=== PATIENT | female | born 1965 | race Caucasian/White ===

== ENCOUNTER 2025-04-01 11:15 | Outpatient (CLI) | payer BC, SELFPAY | END 2025-04-01 23:59 | LOC: LAB.DROPOF 04-02 09:07 | PROVIDERS: PCP Emergency Medicine; Visit Provider Podiatrist | DX: S90.852A Superficial foreign body, left foot, initial encounter (principal) | CPT/HCPCS: 87070; 87205 ==

== ENCOUNTER 2025-04-07 22:33 | Outpatient (CLI) | payer BC, SELFPAY ==
--- OUTSIDE RECORDS SUMMARY | 2025-03-28 03:59 | XMS_ITS | Continuity of Care Document ---
Author Organization [facility] Phone Care Team Providers Care Tar And Ammonia Pump Operator Name Role Phone JAMA GODOY Primary Care JAMA GODOY O Unavailable KRYSTYNA GODOYATUNDE O Admitting JAMA GODOY Primary Attending [phone] ALLERGIES AND ADVERSE REACTIONS ALLERGIES AND ADVERSE REACTIONS Code System Allergy Substance Adverse Reaction Date Reaction (Severity) Comment Status Reported By Updated By [id number] RXNorm PENICILLIN Adverse reaction to substance yeast infections active [id number] on August 25, 2020 3:07:40 PM [facility] FAMILY HISTORY RELATION: Father Status: Cause of : Unknown Age at : Unknown SNOMED-CT Diagnosis Age At Onset [id number] Diabetes mellitus RELATION: Mother Status: LIVING SNOMED-CT Diagnosis Age At Onset Information not available RESULTS Patient: KARUNA REYEZ Date of : 1965 LABORATORY RESULTS Information is not available LABORATORY NARRATIVE RESULTS Information is not available RADIOLOGY RESULTS ORDER 100: FOOT LT 3V (LOINC : 32988-2) ORDER DATE: March 26, 2025 3:18:00 PM [facility] PERFORMING LAB: [address] [id number] Final Result Date: March 26, 2025 3:47:[address] [place] [address] Name: JOSEFINA BECKMAN Exam Date: 03/26/2025 : 1965 Age 59 years Gender: F Physician: JAMA GODOY Facility: [facility] Facility HSV: Outpatient Exam: FOOT LT 3V XR FOOT 3 OR MORE VIEWS LEFT Reason For Study: pain COMPARISON:None TECHNIQUE: 3 views of the left foot were obtained. FINDINGS There is small posterior enthesopathy spur and a moderate plantar calcaneal spur. Soft tissue calcic ages posterior to the talus likely from old trauma. There is evidence of PAD. A small radiopaque density near the MTP joints on the lateral view plantar surface measuring 2 mm which could represent fragment of glass. No acute fractures or dislocation. Ossicle versus old ununited fracture base of fifth metatarsal noted. IMPRESSION: 1. No acute fractures. 2. Small radiopaque density plantar surface near the MTP joints could represent fragment of glass. Electronically signed by: Nuzhat Maldonado MD 03/26/2025 01:54 PM [facility] Dictated By: NUZHAT MALDONADO Transcribed By: Transcribed On: 03/26/2025 10:47 AM Electronically signed by: NUZHAT MALDONADO 03/26/2025 Thank you for referring JOSEFINA BECKMAN to [facility]. Legally authenticated by ERICA NOLAND MD 2025-03-26 10:47:26 PATHOLOGY NARRATIVE RESULTS Information is not available MICROBIOLOGY RESULTS No Micro Labs/Results Exist for Patient BLOOD ADMIN RESULTS Information is not available MEDICATIONS HOME MEDICATIONS Status RXNORM NDC Medication Dose Route Frequency Dates Comments Reported By Updated By Drug Treatment Unknown DISCHARGE MEDICATIONS Status RXNORM NDC Medication Dose Route Frequency Dates Dis pense Data Comments Physician Updated By No Discharge Medication Info rmation Available INPATIENT MEDICATIONS Status RXNORM NDC Medication Dose Route Frequency Rat e Quantity Dates Indication Dispense Data Comments Physician Updated By No Inpatient Medication Info rmation Available SOCIAL HISTORY SOCIAL HISTORY - Smoking Status SNOMED-CT Social History Element Description Effective Dates Offered Cessation Comment Updated By [id number] Historical Tobacco smoking status Never Smoked Yes [id number] on August 21, 2020 3:14:11 PM [facility] SOCIAL HISTORY - Gender Sex: Female SOCIAL HISTORY - Status : status i nformation is not available Intention in Next Year: intention information is not available SOCIAL HISTORY - Assessments Code System Description Status Date Value of Assessment Updated By Comment Assessment Information is no t available SOCIAL HISTORY - Apache Affiliation Apache information is not av ailable SOCIAL HISTORY - Legal Sex Legal Sex information is not available SOCIAL HISTORY - Sexual Behavior Sexual Orientation Gender Identity SNOMED-CT Description SNO MED -CT Description Activity Level No of Partners Partner Type UpdatedBy Information is not available SOCIAL HISTORY - Occupation Occupation information is no t available HEALTH CONCERNS Problems Concern Status Health Concern problem infor mation not available. Smoking Status Status Years Used Consumed packs p er day Health Concern smoking histo ry information not available. Family History Concern Status Health Concern family histor y information not available. ENCOUNTERS ENCOUNTER INFORMATION Reason for Visit S90.859A Admission March 26, 2025 3:07:[address] [address] Discharge March 26, 2025 3:07:00 PM [facility] DISCHARGED TO HOME OR SELF CARE ENCOUNTER DIAGNOSES Notes information is not shreyas ilable. Code System Diagnosis Onset Date Diagnosis information is not available. ABSTRACT DIAGNOSES Code System Diagnosis Updated By Abatement Date S90.859A ICD10 SUPERFICIAL FORE IGN BODY, UNSPECIFIED FOOT, INITIAL ENCOUNTER [id number] on March 28, 2025 8:59:07 AM [facility] Z18.81 ICD10 RETAINED GLASS FRAGMENTS [id number] on March 28, 2025 8:59:07 AM [facility] Z88.8 ICD10 ALLERGY STATUS T O OTHER DRUGS, MEDICAMENTS AND BIOLOGICAL SUBSTANCES [id number] on March 28, 2025 8:59:07 AM [facility] S90.859A ICD10 SUPERFICIAL FORE IGN BODY, UNSPECIFIED FOOT, INITIAL ENCOUNTER [id number] on March 28, 2025 8:59:07 AM [facility] Z18.81 ICD10 RETAINED GLASS FRAGMENTS [id number] on March 28, 2025 8:59:07 AM [facility] Z88.8 ICD10 ALLERGY STATUS T O OTHER DRUGS, MEDICAMENTS AND BIOLOGICAL SUBSTANCES [id number] on March 28, 2025 8:59:07 AM [facility] CARE TEAM Care Tar And Ammonia Pump Operator Role JAMA GODOY Primary Care JAMA GODOY Referring JAMA GODOY Admitting JAMA GODOY Primary Attending CARE TEAM CARE bar catcher Role on Team Location Telecom Status Start Date End Richard e Updated By JAYNE Voss MD PHY PCP normal March 26, 2025 5:00:00 AM [facility] March 26, 2025 3:07:00 PM [facility] [id number] on March 26, 2025 3:08:29 PM [facility] JAYNE MALAVE Referring normal March 26, 2025 5:00:00 AM [place] March 26, 2025 3:07:00 PM [facility] [id number] on March 26, 2025 3:08:29 PM [facility] JAYNE MALAVE Attending normal March 26, 2025 5:00:00 AM [facility] March 26, 2025 3:07:00 PM [facility] [id number] on March 26, 2025 3:08:29 PM [facility] JAYNE MALAVE Admitting normal March 26, 2025 5:00:00 AM [facility] March 26, 2025 3:07:00 PM [facility] [id number] on March 26, 2025 3:08:29 PM [facility]
--- NOTE | 2025-04-07 22:36 | XR_ITS ---
PROCEDURE INFORMATION: Exam: XR Left Foot Complete; Alignment Exam date and time: 04/07/2025 10:44 PM Age: 59 years old Clinical indication: Pain; Foot; Left; Additional info: Left foot pain, foreign body TECHNIQUE: Imaging protocol: Radiologic exam of the left foot. Views: 3 or more views. COMPARISON: DX FOOT LT 3V 03/26/2025 10:28 AM FINDINGS: Bones/joints: Chronic flexion of the digits. Small calcaneal spur. No acute fracture. No dislocation. Soft tissues: No foreign body visualized. No significant edema. IMPRESSION: No acute findings.
--- OUTSIDE RECORDS SUMMARY | 2025-04-07 22:37 | XMS_ITS | Clinical Summary ---
Author Organization [facility] Address [address] [place] [address] Care Team Providers Care Vat Packer Name Role Phone Tonja Leo Primary Care Provider [phone] Allergies No known active allergies Medications XULTOPHY 100-3.6 UNIT-MG/ML solution pen-injector 50 UNITS DIRECTED SUBCUTANEOUS 30 DAYS 3 9 Active levocetirizine (XYZAL) 5 MG tablet Take 5 mg by mouth Daily. 3 8 Active losartan (COZAAR) 100 MG tablet Take 100 mg by mouth Daily. 1 8 Active metFORMIN ER (GLUCOPHAGE-XR) 500 MG 24 hr tablet TAKE 4 TABLETS BY MOUTH IN THE MORNING 0 8 Active JANUVIA 100 MG tablet Take 100 mg by mouth Daily. 0 8 Active escitalopram (LEXAPRO) 20 MG tablet Take 20 mg by mouth Daily. 0 8 Active fluconazole (DIFLUCAN) 150 MG tabletIndication s:Acute recurrent pansinusitis Take 1 tablet by mouth Daily. Take with first dose of antibiotic and last dose of antibiotic. 2 tablet 9 Active Active Problems No known active problems Immunizations Immunization Administration Dates Next Due flucelvax quad pfs =>4 YRS 02/23/2019 Social History Tobacco Use Types Packs/Day Years Used Date Smoking Tobacco: Never Abuse Screen Answer Date Recorded Unsafe at Home or Work/School Not on file Feels Threatened by Someone? Not on file 01/2023 Does Anyone Keep You from Co ntacting Others or Doint Things Outside the Home? Not on file 02/21/2023 Physical Sign of Abuse Present Not on file 1 Housing Stability Answer Date Recorded Current Living Arrangements Not on file 01/2023 Potentially Unsafe Housing Conditions Not on rhianna e 02/21/2023 Family and Community Support Answer Richard e Recorded Help with Day-to-Day Activities Not on file 02/21/2023 Lonely or Isolated Not on file 02/21/2023 Employment Answer Date Recorded Do you want help finding or keeping work or a kolby b? Not on file 02/21/2023 Disabilities Answer Date Recorded Concentrating, Remembering, or Making Decisions Difficulty Not on file 02/21/2023 Doing Errands Independently Difficulty Not on fi le 02/21/2023 Education Answer Date Recorded Help with school or training? Not on file Preferred Language Not on file 02/21/2023 Comments No Sex and Gender Information Value Date Recorded Sex Assigned at Not on file Legal Sex Female 10:54 AM EDT Gender Identity Not on file Sexual Orientation Not on file Last Filed Vital Signs Vital Sign Reading Time Taken Comments Blood Pressure 126/88 04/30/2019 11:45 AM EST Pulse 89 04/30/2019 11:45 AM EST Temperature 36.6 C (97.9 F) 04/30/2019 11:45 AM EST Respiratory Rate 18 04/30/2019 11:45 AM EST Oxygen Saturation 99% 04/30/2019 11:45 AM EST Inhaled Oxygen Concentration - - Weight 106 kg (234 lb) 04/30/2019 11:45 AM EST Height 170.2 cm (5' 7 ) 04/30/2019 11:45 AM EST Body Mass Index 36.65 04/30/2019 11:45 AM EST Plan of Treatment Health Maintenance Due Date Last Done Comments Annual Gynecologic Pelvic and Breast Exam 1965 TDAP/TD VACCINES (1 - Tdap) 10/12/1982 MAMMOGRAM 2003 COLOGUARD 10/12/2008 COLON CANCER SCREENING 5 YEAR SIGMOIDOSCOPY 10/12/2008 CT COLONOGRAPHY 10/12/2008 FECAL OCCULT BLOOD TEST 10/12/2008 FIT Testing (1 year) 10/12/2008 Pneumococcal Vaccine 50+ (1 of 1 - PCV) 10/12/2013 ZOSTER VACCINE (1 of 2) 10/12/2013 ANNUAL PHYSICAL 05/23/2017 HEPATITIS C SCREENING 05/23/2017 INFLUENZA VACCINE 12/14/2024 02/23/2019 COLONOSCOPY 09/10/2034 09/10/2024 COLORECTAL CANCER SCREENING 09/10/2034 Insurance [id number] [place] [id number] [employer] Member Subscriber Plan / Payer (Ef fective 2021-Present) Name:Iraj Lockwood Relation to Subscriber:Self Name:MandieEben hernándezin Payer ID:[id number] (NAIC) Type:Not on file Address: [facility] [id number] [place] [id number] Care Teams Vat Packer Relationship Specialty Start Date End Date Tonja Leo PA [address] [address] PCP - General Family Medicine 07/03/16
--- OUTSIDE RECORDS SUMMARY | 2025-04-07 22:37 | XMS_ITS | Data Portability ---
Author Organization [facility] JODIE ZapataS [facility]IP[facility] CLOSED Address [address] [facility] [address] [place] [address] Care Team Providers Care Thread Clipper Name Role Phone HAILEY ROJO Practicing Md Anesthesiologist DIONICIO AVALOS Primary Care Provider Assessment No assessment recorded. Plan of Treatment Reminders Order Date Submit Date Provider Last Modified By Organization Details Last Modified Time Details Appointments FOLLOW UP [facility] 2024 10:30A M HAILEY ROJO PA-C Not available Not available Not available Lab None recorde d. Referral None recorde d. Procedures None recorde d. Surgeries None recorde d. Imaging None recorde d. Medication Orders None recorde d. Patient TargetsNo targets recorded. Patient InstructionsNo instructions recorded. Reason for Referral None Reported. Procedures Surgical History Date Name Laterality Status Provider Name and Address Organization Details Recorded Time 04/17/20 24 DAK - Cryo AK completed Sky Wayne [facility] 04/17/2024 10:50:23 04/17/20 24 DAK - Destruction BN Lesions completed Sky Rosana [facility] 04/17/2024 10:50:31 04/11/20 23 DAK - Cryo AK completed María Brown [facility] 04/11/2023 09:25:27 04/11/20 23 DAK - Destruction BN Lesions completed María Brown [facility] 04/11/2023 09:25:21 04/11/20 23 DAK - Acne Surgery completed María Brown [facility] 04/11/2023 09:27:25 Imaging Results None recorded. Procedure Notes None recorded. Medical Equipment None Reported. Allergies No known drug allergies Medications Name Sig Start Date Stop Date Status Note LastModified by Organization Details LastModified Time meloxicam active Not Available Not Cheyenne ilable Not Available losartan active Not Available Not Avai lable Not Available Prilosec active Not Available Not Avai lable Not Available metformin active Not Available Not [place] ilable Not Available Lexapro active Not Available Not Avail able Not Available fenofibrate active Not Available Not A vailable Not Available Januvia active Not Available Not Avail able Not Available Xyzal active Not Available Not Availa ble Not Available Ozempic active Not Available Not Avail able Not Available Vitals None Recorded Social History Question Answer Notes LastModified by Organizat ion Details LastModified Time Tobacco Smoking Status Never Smoker Supriya Gay [facility] 04/11/2023 08:56:36 Sunscreen Use? Yes Informatio n not available 04/11/2023 Tanning Bed Use No Informati on not available 04/11/2023 What Was The Date Of Your Most Recent Tobacco Screening? 04/17/2024 [email or web address] Information not available 04/17/2024 Sex: Unknown Functional Status Question Answer Note LastModified by Organizat ion Details LastModified Time What is your level of alcohol consumption? Occasional Information not available 04/11/2023 Mental Status None recorded. Family History Nothing Reported. Medical History No medical history recorded. Gynecological HistoryNo gynecological history recorded. Obstetrics History GPAL:G 0 P 0 0 0 0 Past Encounters Encounter ID Performer Location Encounter Start Date Encounter Closed Date Diagnosis/Indication Diagnosis SNOMED-CT Code Diagnosis ICD10 Code Diagnosis IMO Codes Diagnosis Note [id number] HAILEY ROJO PA-C [place] [address] [place] [address] 04/11/2023 08:42:48 04/11/2023 09:34:16 Multiple benign melanocytic nevi [id number] D22.5 - Benign moles seen on exam today - SPF 30 or higher broad-spec trum sunscreen recommende d with re-applica tion every 2 hours - Discussed sun protection measures, including wide-brimm ed hat, sun-protec tive clothing, and avoidance of sun during peak hours of 10am-4pm - Avoid tanning beds as these can increase the chances of all 3 types of skin cancer - Instructed to monitor for changes and to call us for appointmen t with any changing or worrisome lesions Seborrheic keratosis [id number] L82.1 - Benign overgrowth s of skin - Hereditary Senile angioma 6725007 I 78.1 - Benign blood vessel growths - Hereditary Solar lentigo 11857086 L 81.4 - Benign brown spots - Sun-induce d Whitney [id number] L72.0 R20.8 Benign reassuranc e. Clogged pore.No tx needed.Can remove with acne surgery if desired. She opted for removal. Inflamed s eborrheic keratosis [id number] L82.0 Benign reassuranc e. Thickening of the skin. Can sometimes become irritated or inflamed. Can continue to get more over time. Plan to treat with LN2. Will crust over and fall off in about a week. Monitor for changes.Di scussed risk of white discolorat ion at sites of LN2. Sebaceous hyperplasia 23 [id number] L21.8 Sebaceous hyperplasi a are enlarged, but otherwise normal sebaceous oil glands. These become visible as we age and our skin gets thinner and we lose elastic tissue. Aging, sun exposure, and rosacea tendency all promote sebaceous hyperplasi a. There is no ideal non scarring treatment to remove these lesions. If desired, can use electrodes iccation at low voltage to destroy lesions, but this is not covered by insurance. Multiple skin tags [id number] L91.8 L29.9 Skin tags tend to occur in areas subjected to friction. Although they can be troublesom e and unsightly, skin tags are entirely benign. Will remove with LN2. Actinic keratosis L57.0 Actinic keratoses are precancero us lesions that may progress to squamous cell carcinoma if untreated. UV light and genetics may increase risk. Treated lesions should blister, scab over, and heal within a few weeks. If treated lesion(s) does not resolve within 1-2 months, patient agrees to follow up for re-evaluat ion. [id number] HAILEY MUSTAPHA ROJO , PA-C [facility] [address] [address] 04/17/2024 10:09:03 04/17/2024 10:55:47 Multiple benign melanocytic nevi [id number] D22.5 I78.1 L82.1 L81.4 Benign appearing lesions noted on exam. Reassured. Monitor for changes and call us for appt if changing or worrisome. Recommende d daily SPF 30 (or higher) broad-spec trum sunscreen usage with re-applica tion every 2 hours, as well as sun protection measures, including wide-brimm ed hats, wearing of protective clothing, and avoidance of sun during peak hours of the day 10 am - 4 pm.Follow up in 1 year for a full skin exam. Inflamed s eborrheic keratosis [id number] L82.0 R20.8 Benign ISK. Lesion(s) are/is bothersome . Will LN2 today. Can leave a white discolorat ion in the areas where LN2 is performed. May not completely go away. May be more of a debulking. Seborrheic keratosis 394 767105 L82.1 Benign over growths of skin. Reassuranc e given. Asteatosis cutis [id number] 0 L85.3 The nature of the diagnosis was discussed. Recommend washing only armpits, groin area, feet in shower with Dove Body soap. Disc over-washi ng body can cause skin to dry.Recomm end moisturizi ng with OTC Cetaphil or CeraVe Cream daily and after showering to lock in moisture. Actinic keratosis 704106 [phone] L57.0 Actinic keratoses are precancero us lesions that may progress to squamous cell carcinoma if untreated. UV light and genetics may increase risk. Treated lesions should blister, scab over, and heal within a few weeks. If treated lesion(s) does not resolve within 1-2 months, patient agrees to follow up for re-evaluat ion. Health Concerns Section Related Observation LastModified by Organization Detai ls LastModified Time None Recorded Concern Status LastModified by Organization Details LastModified Time None Recorded Advance Directives Directive None Recorded Payers Insurance Date Sequence Insurance Name Policy Number Policy Betancourt Covered Member ID Betancourt Member ID Guarantor Name 04/17/2024 1 *SELF PAY* Taina Danielle 04/17/2024 1 [place] [id number] Iraj Lockwood [id number] Iraj Lockwood Notes Date Note Type Note Provider Name and Address Organization Details Recorded Time 04/11/2023 text/html Patient is here for a full body skin exam. - Last skin check: Re-establishing patient.- No history of skin cancer.- Areas of concern: R upper thigh, right breast, forehead, back. 2. I have some skin tags. - Location: Neck, Bilateral upper arms, chest, face.- Duration: A while.- Prior treatments: None.- REPORTS: Skin tags. 3. I have rough skin on my elbows - Location: Bilateral elbows.- Duration: A while.- Prior treatments: OTC moisturizer.- REPORTS: Rough skin on elbows. HAILEY ROJO PA-C [address] [place], [address], [facility] 04/11/2023 09:50:10 04/17/2024 text/html Here for a full body skin examination - last skin check: 04/07 - no history of skin cancer - spots of concern today: back HAILEY ROJO PA-C [address] [place], [address], [facility] 04/17/2024 14:18:58 OBGyn Episode No OBEpisode recorded.
--- OUTSIDE RECORDS SUMMARY | 2025-04-07 22:37 | XMS_ITS | Encounter Summary ---
Author Organization Healthcare Address [address] [place] [address] Care Team Providers Care Accounting Tutor Name Role Phone Tonja Leo Primary Care Provider [phone] Nell Velazquez APRN Primary Care Provider Reason for Visit * Reason Comments Med Refill Encounter Details Date Type Department Care Team (Late st Contact Info) Description 07/13/2021 Refill [facility] [address], [address] [place] [address] Omid Roy MD [address] [facility] [address] [place] [address] Social History Tobacco Use Types Packs/Day Years Used Date Smoking Tobacco: Never Smokeless Tobacco: Never Alcohol Use Standard Drinks/Week Comments Yes 0 (1 standard drink = 0.6 oz pure alcohol) Alcoholic Drinks/day: Occasional alcohol use Comments Unknown Sex and Gender Information Value Date Recorded Sex Assigned at Female 04/15/2021 6:17 PM EST Legal Sex Female 7:39 PM EDT Gender Identity Female 04/15/2021 6:17 PM EST Sexual Orientation Not on file documented as of this encounter Plan of Treatment Not on file documented as of this encounter Visit Diagnoses Not on filedocumented in this encounter Care Teams Accounting Tutor Relationship Specialty Start Date End Date Tonja Leo PA [address] [place] [address] PCP - General 09/26/20 09/01/21 Nell Velazquez APRN [address] [place] [address] PCP - General Family Medicine 09/02/21 documented as of this encounter
--- OUTSIDE RECORDS SUMMARY | 2025-04-07 22:37 | XMS_ITS | Data Portability ---
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 Patient will come back in a year unless there are new symptoms. [email or web address] Not available 07/26/2022 13:24:00 08/01/2023 08/01/2023 Annual gynecological exam performed. Patient will come back in a year unless there are new symptoms. [email or web address] Not available 08/01/2023 13:04:06 08/02/2024 08/02/2024 Annual gynecological exam performed. Patient will come back in a year unless there are new symptoms. [email or web address] Not available 08/02/2024 08:45:29 Plan of Treatment Reminders Order Date Submit Date Provider Last Modified By Organization Details Last Modified Time Details Appointments None record ed. Lab vagina l pathog ens panel, MALISSA+pr obe, vagina l fluid 2024 025 EB [facility] ([facility], [address] [place] [address], [place], [address], 21:06:41 unlist ed lab - suresw ab(R) advanc ed vagini tis, tma 2023 024 [facility], [address], [place], [address], 4 11:17:15 rapid SARS CoV 2 Ag, QL, IA, upper respir atory specim en [address], [address] [place] [address], [id number], 4 08:27:22 rapid strep group A, throat [address], [address] [place] [address], [place], [address], 4 08:27:23 rapid flu (A+B) [address], [address] [place] [address], [id number], 4 08:27:24 Referral None record ed. Procedures None record ed. Surgeries None record ed. Imaging MAMMO, screen ing, digita l, bilate ral - Additi onal views and ultras ounds per radiol ogy. 2023 024 [facility] (Central Scheduling), [address] [place] [address] [place], [address], 4 15:36:04 MAMMO, screen ing, digita l, bilate ral 2022 023 [facility] (Central Scheduling), [address] [place] [address] [place], [address], 3 17:07:35 Medication Orders estrad iol 0.01% (0.1 mg/gra m) vagina l cream 2024 025 mathieu [facility]/Pharmacy #[id number], [address] [place] [address], [address], 5 09:25:12 Difluc an 200 mg tablet 2024 025 [facility]/Pharmacy #3016, [address] [place], [address], 5 09:30:13 nystat in 100,00 0 unit/g jessi topica l powder 2024 025 [facility]/Pharmacy #3016, [address] [place], [address], 5 09:25:12 cefdin ir 300 mg capsul e 2023 024 [email or web address] [facility]/Pharmacy #3016, [address] [place], [address], 5 08:46:09 Difluc an 200 mg tablet 2023 024 EB [facility]/Pharmacy #3016, [address] [place], [address], 4 08:27:23 Patient TargetsNo targets recorded. Patient Instructions Encounter Date Encounter Id Patient Instructions Last Modified By Organization Details Last Modified Time 07/07/2023 [id number] learning about healthy weight [email or web address] Not available 07/07/2023 08:27:19 Take medication as prescribed. Increase fluids and rest. Take Tylenol/Motrin as needed for fever/pain. Gargle with salt water/use throat lozenges for sore throat relief. If symptoms persist or worsen call the clinic. Not available 07/07/2023 08:16:42 Plan of care discussed with patient/guardian who voiced understanding. [email or web address] Not available 07/07/2023 08:16:27 Reason for Referral None Reported. Results Created Date Observation Date Name Description Value Unit Range Abnormal Flag Note LastModifiedBy Organization Detail LastModifiedTime 07/07/1907/07/2023 rapid strep group A, throa t Strep positi ve Not Available [facility] on [address], [place], [address], 07/07/2023 08:04:32 07/07/19 24 07/07/2023 rapid SARS CoV 2 Ag, QL, IA, upper respi rator y speci men SARS CoV Ag negati ve Not Available [facility] on [address], [address], 07/07/2023 07:55:20 07/07/19 24 07/07/2023 rapid flu (A+B) Flu A negati ve Not Available [facility] on [address], [address], 07/07/2023 08:04:36 07/07/19 24 07/07/2023 rapid flu (A+B) Flu B negati ve Not Available [facility] on [address], [address], 07/07/2023 08:04:36 08/01/19 24 08/02/2023 SURES WAB(R ) ADVAN KYLE VAGIN ITIS, TMA sureswab(R) adv bacterial vaginosis (bv), tma NEGATI VE negati ve normal Not Available [facility] [address] [place], [address], 08/02/2023 11:17:15 08/01/19 24 08/02/2023 SURES WAB(R ) ADVAN KYLE VAGIN ITIS, TMA blake species DETECT ED not detect ed abnormal Not Available [facility] [address] [place], [address], 08/02/2023 11:17:15 08/01/19 24 08/02/2023 SURES WAB(R ) ADVAN KYLE VAGIN ITIS, TMA blake glabrata NOT DETECT ED not detect ed normal Josie da speci es C. albic ans, C. tropi calis , C. parap latoya is, and/o r C. dubli niens is can be detec mare, but not diffe renti ated, in the Josie da spp. resul t. Not Available [facility] [address] [facility], [place], [address], 08/02/2023 11:17:15 08/01/19 24 08/02/2023 SUREDionisio ACHARYA(R ) ADVAN KYLE VAGIN ITIS, TMA trichomonas vaginalis (TV), tma NOT DETECT ED not detect ed normal Not Available [facility] [address] [facility], [place], [address], 08/02/2023 11:17:15 08/03/19 25 08/04/2024 NUSWA B VAGIN ITIS PLUS (VG+) atopobium vaginae Low - 0 score Not Available [facility] ([facility]) [address] [place], [address], 08/04/2024 21:06:41 08/03/19 25 08/04/2024 NUA B VAGIN ITIS PLUS (VG+) bvab 2 Low - 0 score Not Available [facility] ([facility]) [address] [facility], [place], [address], 08/04/2024 21:06:41 08/03/19 25 08/04/2024 NUSWA B VAGIN ITIS PLUS (VG+) megasphaera 1 Low - 0 score Calcu late total score by alannah panchal the 3 indiv idual bacte rial vagin osis (BV) marke r score s toget her. Total score is inter prete d as follo ws: Total score 0-1: Indic ates the absen ce of BV. Total score 2: Indet ermin ate for BV. Addit ional clini pankaj data shoul d be evalu ated to estab carson a diagn osis. Total score 3-6: Indic ates the prese nce of BV. Not Available [facility] ([facility]) [address] [place], [address], 08/04/2024 21:06:41 08/03/19 25 08/04/2024 NUA B VAGIN ITIS PLUS (VG+) blake albicans, MALISSA Negati ve negati ve Not Available [facility] ([facility]) [address] [place], [address], 08/04/2024 21:06:41 08/03/19 25 08/04/2024 NUSWA B VAGIN ITIS PLUS (VG+) blake glabrata, MALISSA Positi ve negati ve abnormal Publi shed data demon strat e that up to 65% of Josie da glabr patt ident ified in cases of vagin al josie diasi s have decre ased susce ptibi lity to fluco nazol e. Not Available [facility] ([facility]) [address] [facility], [place], [address], 08/04/2024 21:06:41 08/03/19 25 08/04/2024 NUA B VAGIN ITIS PLUS (VG+) trich vag by MALISSA Negati ve negati ve Not Available [facility] ([facility]) [address] [facility], [place], [address], 08/04/2024 21:06:41 08/03/19 25 08/04/2024 NUA B VAGIN ITIS PLUS (VG+) chlamydia trachomatis, MALISSA Negati ve negati ve Not Available [facility] ([facility]) [address] [facility], [place], [address], 08/04/2024 21:06:41 08/03/19 25 08/04/2024 NUA B VAGIN ITIS PLUS (VG+) neisseria gonorrhoeae, MALISSA Negati ve negati ve Not Available [facility] ([facility]) [address] [place], [address], 08/04/2024 21:06:41 08/24/19 23 08/23/2022 MAMMO , scree harry, digit al, bilat eral No observ ation record ed. [facility] (Registration ) [address] [place], [address], 08/24/2022 09:21:23 09/01/19 24 08/25/2023 MAMMO , scree harry, digit al, bilat eral No observ ation record ed. [facility] ([facility] ) [address] [place], [address], 09/12/2023 10:55:19 08/28/19 25 08/27/2024 MAMMO , scree harry, digit al, bilat eral No observ ation record ed. [facility] (Registration ) [address] [place], [address], 08/28/2024 12:49:49 09/12/19 25 09/11/2024 US, breas t, unila teral , limit ed No observ ation record ed. [email or web address] [facility] Registration [address] [place], [address], 09/11/2024 13:41:58 09/12/19 25 09/11/2024 MAMMO , scree harry, digit al, bilat eral No observ ation record ed. [facility] Registration [address] [place], [address], 09/11/2024 09:29:10 Result Notes None recorded. Problems Name Problem SNOMED Code Status Onset Date Resolution Date Notes Provider Name and Address Organization Details Recorded Time Subacute and chronic vaginitis 550343333 Active 2020 Problem Code: N76.1; Problem Code Type: ICD-10; Not Available [facility] 2 21:13:24 Gynecologic examination Active 2020 Problem Code: Z01.411; Problem Code Type: ICD-10; Not Available [facility] 2 21:13:25 Screening mammography Active 2020 Problem Code: Z12.31; Problem Code Type: ICD-10; Not Available [facility] 2 21:13:25 Screening for osteoporosi s Active 2020 Problem Code: Z13.820; Problem Code Type: ICD-10; Not Available [facility] 2 21:13:25 Postmenopau buffy bleeding 75569000 Active 2020 Problem Code: N95.0; Problem Code Type: ICD-10; Not Available [facility] 2 21:13:25 Atrophic vaginitis 74148089 Active 2020 Problem Code: N95.2; Problem Code Type: ICD-10; Not Available [facility] 2 21:13:26 Screening for malignant neoplasm of colon Active 2020 Not Available [facility] 21:13:25 Disorder of respiratory system suspected 010347380 Active 2020 Not Available [facility] 21:13:25 Mixed hyperlipide lidia 990976911 Active 2020 Problem Code: E78.2; Problem Code Type: ICD-10; Not Available [facility] 2 21:13:24 Type 2 diabetes mellitus without complicatio n 777498817 Active 2020 Not Available [facility] 21:13:24 Hypertensiv e disorder 20553160 Active 2020 Problem Code: I10; Problem Code Type: ICD-10; Not Available [facility] 21:13:24 Malignant neoplasm of large intestine 668163588 Active 2021 Problem Code: C18.9; Problem Code Type: ICD-10; Not Available [facility] 2 21:13:24 Sampling of vagina for Papanicolao u smear Active 2021 Problem Code: Z01.419; Problem Code Type: ICD-10; Not Available [facility] 21:13:25 Hirsutism 087826030 Active 2021 Problem Code: L68.0; Problem Code Type: ICD-10; Not Available [facility] 21:13:25 Problem Notes None recorded. Procedures Surgical History Date Name Laterality Status Provider Name and Address Organization Details Recorded Time 08/25/19 24 Most Recent Mammogram completed [employer] 08/02/2024 08:46:47 08/15/19 21 hysterectomy completed [employer] 07/26/2022 13:38:07 07/08/19 21 Date of Last Pap Smear completed [employer] 07/26/2022 13:25:51 Hernia Repair completed [facility] [employer] 06/24/2022 11:26:43 excision of ganglion cyst completed [employer] 07/26/2022 13:37:47 procedure on gallbladder completed [employer] 07/26/2022 13:37:56 resection of rectum completed [employer] 07/26/2022 13:38:21 Colonoscopy completed [employer] 08/02/2024 09:01:37 Imaging Results None recorded. Procedure Notes None recorded. Medical Equipment None Reported. Allergies Allergen ID Allergen Name Allergen Category Reaction Reaction Severity Criticality Documentation Date Start Date Code Code System Note Provider Name and Address Organization Details Recorded Time 97463 Product containin g penicilli n (product) medicatio n Not available Not available Not available 01/19/2022 [id number] SNOMED Marina britt [employer] 15:31:57 Medications Name Sig Start Date Stop Date Status Note LastModified by Organization Details LastModified Time fluconazole 100 mg tablet 08/02 completed Not Available Not Available Not Available metformin 500 mg tablet 2 tablets po bid 06/24 completed Not Available Not Available Not Available pilocarpine 1 % eye drops ADMINISTE R 1 DROP INTO THE RIGHT EYE 1 TIME EACH DAY 06/24 completed Not Available Not Available Not Available trazodone 50 mg tablet TAKE 1-2 TABLETS BY MOUTH EVERY NIGHT AT BEDIME FOR SLEEP active Not Available Not Available No t Available azithromyci n 250 mg tablet TAKE 2 TABLETS BY MOUTH TODAY, THEN TAKE 1 TABLET DAILY FOR 4 DAYS 07/07 completed Not Available Not Available Not Available fluconazole 150 mg tablet TAKE 1 TABLET BY MOUTH EVERY 72 HOURS FOR 3 DAYS active Not Available Not Available No t Available benzonatate 200 mg capsule TAKE 1 CAPSULE BY MOUTH THREE TIMES A DAY FOR 7 DAYS 07/07 completed Not Available Not Available Not Available clarithromy jaqui 500 mg tablet TAKE 1 TABLET BY MOUTH EVERY 12 HOURS FOR 7 DAYS 07/07 completed Not Available Not Available Not Available hydrocodone 5 mg-acetamin ophen 325 mg tablet TAKE 1 TABLET BY MOUTH EVERY 6 HOURS NEEDED FOR PAIN 08/02 completed Not Available Not Available Not Available fluconazole 200 mg tablet TAKE 1 TABLET BY MOUTH NEEDED FOR 3 DAYS active Not Available Not Available No t Available meloxicam 15 mg tablet TAKE 1 TABLET BY MOUTH EVERY DAY active Not Available Not Available No t Available prednisone 20 mg tablet TAKE 1 TABLET BY MOUTH EVERY DAY FOR 3 DAYS 07/07 completed Not Available Not Available Not Available terconazole 0.8 % vaginal cream INSERT 1 APPLICATO RFUL VAGINALLY EVERY DAY FOR 7 DAYS active Not Available Not Available No t Available amoxicillin 500 mg tablet 08/02 completed Not Available Not Available Not Available meloxicam 7.5 mg tablet take 1 tablet (7.5 mg) by oral route once daily 06/24 completed Not Available Not Available Not Available methocarbam ol 750 mg tablet TAKE 1 TABLET BY MOUTH THREE TIMES A DAY FOR 30 DAYS active Not Available Not Available No t Available trazodone 100 mg tablet take 1 tablet (100 mg) by oral route once times per day 2020 active Not Available Not Available Not Avai lable hydrocodone 7.5 mg-acetamin ophen 325 mg tablet TAKE 1 TABLET BY MOUTH TWICE A DAY FOR 5 DAYS 08/02 completed Not Available Not Available Not Available erythromyci n 5 mg/gram (0.5 %) eye ointment APPLY 1 APPLICATI ON TO BOTH EYES EVERY 6 (SIX) HOURS. 06/24 completed Not Available Not Available Not Available prednisone 50 mg tablet TAKE 1 TABLET BY MOUTH EVERY DAY 08/02 completed Not Available Not Available Not Available gabapentin 100 mg capsule TAKE 1 CAPSULE BY MOUTH THREE TIMES A DAY FOR 30 DAYS active Not Available Not Available No t Available nystatin 100,000 unit/gram topical powder APPLY TO AFFECTED AREA TWICE A DAY active Not Available Not Available No t Available estradiol 0.01% (0.1 mg/gram) vaginal cream INSERT 1 GM VAGINALLY THREE TIMES A WEEK 2024 active Not Available Not Available Not Avai lable scopolamine 1 mg over 3 days transdermal patch APPLY 1 PATCH ON SKIN EVERY 72 HOURS FOR 21 DAYS. active Not Available Not Available No t Available methylpredn isolone 4 mg tablets in a dose pack TAKE 6 TABLETS ON DAY 1 DIRECTED ON PACKAGE AND DECREASE BY 1 TAB EACH DAY FOR A TOTAL OF 6 DAYS 06/24 completed Not Available Not Available Not Available albuterol sulfate HFA 90 mcg/actuati on aerosol inhaler INHALE 2 PUFFS INTO THE LUNGS EVERY 4 HOURS FOR 7 DAYS active Not Available Not Available No t Available cefdinir 300 mg capsule TAKE 1 CAPSULE BY MOUTH EVERY 12 HOURS FOR 10 DAYS DIRECTED FOR STREP 08/02 completed Not Available Not Available Not Available losartan 100 mg tablet TAKE 1 TABLET BY MOUTH EVERY DAY active Not Available Not Available No t Available metformin ER 500 mg tablet,exte nded release 24 hr TAKE 4 TABLETS BY MOUTH ONCE DAILY IN THE MORNING active Not Available Not Available No t Available doxycycline hyclate 100 mg tablet TAKE 1 TABLET BY MOUTH TWICE A DAY FOR 10 DAYS 07/07 completed Not Available Not Available Not Available Laxative (bisacodyl) 5 mg tablet,barbara yed release DAY BEFORE PROCEDURE AT 4PM TAKE 4 TABLETS WITH 8 OZ OF CLEAR LIQUID active Not Available Not Available No t Available escitalopra m 20 mg tablet TAKE 1 TABLET BY MOUTH EVERY DAY active Not Available Not Available No t Available fenofibrate 160 mg tablet TAKE 1 TABLET BY MOUTH EVERY DAY active Not Available Not Available No t Available chlorhexidi ne gluconate 0.12 % mouthwash RINSE WITH 15ML FOR 30 SECONDS AND SPIT, USE TWICE DAILY AFTER BRUSHING AND FLOSSING . active Not Available Not Available No t Available losartan 06/24 completed Not Available Not Available Not Available metformin 04/30 completed Not Available Not Available Not Available Lexapro 04/30 completed Not Available Not Available Not Available Januvia 100 mg tablet TAKE 1 TABLET BY MOUTH EVERY DAY active Not Available Not Available No t Available Januvia 04/30 completed Not Available Not Available Not Available levocetiriz ine 5 mg tablet TAKE 1 TABLET BY MOUTH EVERY DAY IN THE EVENING FOR 30 DAYS active Not Available Not Available No t Available Gavilax 17 gram/dose oral powder PLEASE SEE ATTACHED FOR DETAILED DIRECTION S active Not Available Not Available No t Available Tradjenta 5 mg tablet TAKE 1 TABLET BY MOUTH EVERY DAY 08/02 completed Not Available Not Available Not Available Victoza 3-Rick 0.6 mg/0.1 mL (18 mg/3 mL) subcutaneou s pen injector INJECT 0.6MG DAILY X 2 WEEKS,THE N 1.2MG DAILY X 2 WEEKS,THE N 1.8MG DAILY 06/24 completed Not Available Not Available Not Available Jardiance 25 mg tablet TAKE 1 TABLET BY MOUTH EVERY DAY active Not Available Not Available No t Available Jardiance 04/30 completed Not Available Not Available Not Available Xultophy 100/3.6 04/30 completed Not Available Not Available Not Available Ozempic 0.25 mg or 0.5 mg (2 mg/1.5 mL) subcutaneou s pen injector INJECT 0.5 MG SUBCUTANE OUSLY WEEKLY 06/24 completed Not Available Not Available Not Available Ozempic 1 mg/dose (4 mg/3 mL) subcutaneou s pen injector INJECT 1 MG UNDER THE SKIN ONCE A WEEK 08/02 completed Not Available Not Available Not Available Ozempic 2 mg/dose (8 mg/3 mL) subcutaneou s pen injector INJECT 2 MG EVERY WEEK BY SUBCUTANE OUS ROUTE FOR 84 DAYS. active Not Available Not Available No t Available Vitals Date Recorded Body height Body mass index (BMI) Body weight Body temperature Heart rate Oxygen saturation Systolic And Diastolic Provider Name and Address Organization Details Last Updated DateTime 4 170.18 cm 32.4 kg/m2 76585.6 2 g 97.8 [degF] 70 /min 97 % 110/70 mm[Hg] Jennifer Oliver [facility] [employer] 4 08:04:29 Date Recorded Body height Body mass index (BMI) Body weight Systolic And Diastolic Provider Name and Address Organization Details Last Updated DateTime 07/26/2022 170.18 cm 34.1 kg/m2 67695.14 g 122/80 mm[Hg] DEYVI NOVAK [facility] 07/26/2022 13:48:58 Date Recorded Body height Body mass index (BMI) Body weight Systolic And Diastolic Provider Name and Address Organization Details Last Updated DateTime 08/01/2023 170.18 cm 33.1 kg/m2 34753.15 g 118/76 mm[Hg] GREGORIA ASHLEY [facility] 08/01/2023 13:01:08 Social History Question Answer Notes LastModified by Organizat ion Details LastModified Time Tobacco Smoking Status Never Smoker Marina britt [facility] 07/28/2022 15:32:40 Do You Wear A Helmet When Biking? No Information not available 07/07/2023 Are You Blind Or Do You Have Difficulty Seeing? Yes Wear Glasses Information not available 06/24/2022 What Is Your Level Of Caffeine Consumption? Moderate Information not available 06/24/2022 In The 14 Days Before Symptom Onset, Have You Had Close Contact With A Laboratory-confi rmed COVID-19 While That Case Was Ill? No [email or web address] Information not available 07/07/2023 In The 14 Days Before Symptom Onset, Have You Had Close Contact With A Person Who Is Under Investigation For COVID-19 While That Person Was Ill? No Information not available 07/07/2023 Have You Been To An Area Known To Be High Risk For COVID-19? No [email or web address] Information not available 07/07/2023 Are You Deaf Or Do You Have Serious Difficulty Hearing? No Information not available 06/24/2022 What Type Of Diet Are You Following? REGULAR Information not available 06/24/2022 Who Is Your Employer? [employer] Information not available 07/26/2022 Which Of Your Hands Is Dominant? Left Information not available 06/24/2022 What Was The Date Of Your Most Recent Tobacco Screening? 08/01/2023 [email or web address] Information not available 08/01/2023 What Is Your Relationship Status? Information not available 06/24/2022 Do You Use Your Seat Belt Or Car Seat Routinely? Yes Information not available 06/24/2022 Are You Passively Exposed To Smoke? No Information not available 06/24/2022 Are There Any Smokers In Your House? No Information not available 06/24/2022 Do You Participate In Social Media? Yes [email or web address] Information not available 07/07/2023 Has Tobacco Cessation Counseling Been Provided? No Information not available 07/07/2023 Have You Recently Traveled Abroad? No [email or web address] Information not available 07/07/2023 Do You Have Difficulty Walking Or Climbing Stairs? No Information not available 06/24/2022 Are You Currently In School? No Information not available 06/24/2022 Do You Have Any Dietary Restrictions? No Information not available 06/24/2022 Sex: Female Functional Status Question Answer Note LastModified by markedup ion Details LastModified Time How many times per week do you consume alcohol? Less than 1 time per week Information not available 06/24/2022 Do you use any illicit or recreational drugs? No Information not available 07/26/2022 Do you or have you ever used any other forms of tobacco or nicotine? No [email or web address] Information not available 07/07/2023 What is your level of alcohol consumption? Occasional Information not available 06/24/2022 Are you currently employed? Yes Information not available 06/24/2022 Do you have transportation difficulties? No Information not available 06/24/2022 Are you able to walk independently without assistance or assistive devices? [email or web address] Information not available 06/24/2022 Do you have difficulty doing errands alone? No Information not available 06/24/2022 Are you able to care for yourself independently? Yes Information not available 06/24/2022 What is your occupation? [employer] Information not available 06/24/2022 Do you have difficulty dressing, bathing, grooming, or toileting? No [employer] Information not available 06/24/2022 Mental Status Question Answer Note LastModified by Organizat ion Details LastModified Time Do you feel stressed (tense, restless, nervous, or anxious, or unable to sleep at night)? [id number] [employer] Information not available 06/24/2022 Do you have difficulty concentrating, remembering or making decisions? No [employer] Information n ot available 06/24/2022 Family History Relationship Description Onset Age of this Age Resolved Age Notes LastModified by Organization Details LastModified Time Unspecified Relation Family history of ischemic heart disease [email or web address] Not available 2022 15:32:27 Unspecified Relation Family history of hyperlipidem ia [email or web address] Not available 2022 15:32:29 Unspecified Relation Family history of diabetes mellitus type 2 [email or web address] Not available 2022 15:32:33 Medical History Condition Response Allergies/Hayfever Y Anxiety Disorder Y Diabetes Y Hospitalizations N Emergency room visit since last appointm ent. N Thyroid Problems N Hypertension Y Gynecological History Statement/Question Response Abnormal Pap N HPV Vaccine N Current Control Method Hysterectom y Most Recent Mammogram 08/25/2023 If Post Menopausal, Age at Menopause 48 Sexually Active? Y Menses Monthly N Date of Last Pap Smear 07/08/2020 Sexual Problems? N LMP Unknown Desired Control Method Hysterectom y Obstetrics History GPAL:G 0 P 0 0 0 0 Immunizations Vaccine Type Date Status Note Provider Nam e and Address Organization Details Recorded Time Influenza, split virus, quadrivalent, PF 3 completed Jennifer britt, [employer] 03/03/2023 14:25:53 Influenza, MDCK, quadrivalent, PF 1 completed DEYVI britt, [employer] 07/26/2022 13:24:05 Influenza, MDCK, quadrivalent, PF 9 completed DEYVI britt, [employer] 07/26/2022 13:24:05 Influenza, MDCK, quadrivalent, PF 2 completed DEYVI JAYLAN NOVAK null, [employer] 07/26/2022 13:24:05 zoster recombinant 0 completed DEYVI JAYLAN NOVAK null, [employer] 07/26/2022 13:24:05 zoster recombinant 0 completed DEYVI JAYLAN NOVAK null, [employer] 07/26/2022 13:24:05 COVID-19, mRNA, LNP-S, PF, 100 mcg/0.5mL dose or 50 mcg/0.25mL dose 1 completed DEYVI JAYLAN NOVAK null, [employer] 07/26/2022 13:24:05 COVID-19, mRNA, LNP-S, PF, 100 mcg/0.5mL dose or 50 mcg/0.25mL dose 1 completed DEYVI JAYLAN NOVAK null, [employer] 07/26/2022 13:24:05 COVID-19, mRNA, LNP-S, PF, 100 mcg/0.5mL dose or 50 mcg/0.25mL dose 2 completed DEYVI JAYLAN NOVAK null, [employer] 07/26/2022 13:24:05 COVID-19, mRNA, LNP-S, PF, 100 mcg/0.5mL dose or 50 mcg/0.25mL dose 1 completed DEYVI JAYLAN NOVAK null, [employer] 07/26/2022 13:24:05 pneumococcal polysaccharide PPV23 0 completed DEYVI JAYLAN NOVAK null, [employer] 07/26/2022 13:24:05 Hep B, adult 3 completed DEYVI JAYLAN NOVAK null, [employer] 07/26/2022 13:24:05 Hep B, adult 2 completed DEYVI JAYLAN NOVAK null, [employer] 07/26/2022 13:24:05 Hep B, adult 2 completed DEYVI MATHEWCO null, [employer] 07/26/2022 13:24:05 Influenza, split virus, quadrivalent, PF 8 completed DEYVI TIAN NOVAK null, [employer] 07/26/2022 13:24:05 Influenza, split virus, quadrivalent, PF 0 completed DEYVI JAYLAN NOVAK null, [employer] 07/26/2022 13:24:05 Past Encounters Encounter ID Performer Location Encounter Start Date Encounter Closed Date Diagnosis/Indication Diagnosis SNOMED-CT Code Diagnosis ICD10 Code Diagnosis IMO Codes Diagnosis Note [id number] Tonja Leo PA-C [facility] y [address] [place], [place] [address] 06/24/2022 11:09:09 06/24/2022 13:01:47 Acute sinusitis 01875816 J01.90 rest, increase fluids, Tylenol for fever or headache, humidifier . Continue Flonase and start antibiotic . Monitor blood glucose for elevations over 200 with adjustment in diet and contact PCP if persists with elevations . f/u in 5-7 days if not improved. Body mass index 30+ - obesity 151192130 Z68.34 healthy low carbohydra te low fat diet and regular aerobic exercise. Tobacco non-user [id number] 001 79656 Z13.89 [id number] Israel Gray MD [address] [address] 07/26/2022 13:10:26 07/26/2022 14:08:03 Gynecologic examination 78313230 Z01.411 No new gynecologi c issues. Normal exam today. Screening mammography 186915 Z12.31 Monthly self breast exam advised mammogram will be scheduled. . Screening for osteoporosis 177371709 Z13.820 Calcium 1200 mg p.o. daily with repeat DEXA in 1 to 2 years. [id number] Tonja Leo PA-C [facility] y [address] [place], [place] [address] 03/03/2023 12:27:00 03/03/2023 14:25:20 Administration of influenza vaccine 38753269 Z23 [id number] Tosha Combs APRN [facility] y [address] [place] [address] 07/07/2023 07:53:30 07/07/2023 10:31:02 Acute tonsillitis caused by Streptococcus 0766936169 4461278 J03.00 Acute uppe r respiratory infection 10303447 J06.9 Body mass index 30+ - obesity 865718263 Z68.32 [id number] Israel Gray MD [address] [address] 08/01/2023 12:55:17 08/01/2023 13:47:05 Gynecologic examination 33298107 Z01.411 No new gynecologi c issues. Normal exam today. . Mammograms will be scheduled. Plan on bone density study next year. Calcium 1200 mg p.o. daily advised. Screening mammography 24 751217 Z12.31 Monthly self breast exam advised mammogram will be scheduled. . Malignant neoplasm of large intestine 674522538 C18.9 Patient continues to follow-up with [facility] colorectal surgery department . He Chronic vulvitis 6547294 N76.3 Patient has poorly controlled diabetes with recurrent vulvar yeast infections . She has a standing order for Diflucan from her primary care provider. However I want to make sure she was not missing a resistant yeast or bacterial vaginosis. Sure swab was repeated. [id number] Israel Gray MD [address] [address] 08/02/2024 08:44:46 08/02/2024 09:25:39 Body mass index 30+ - obesity 357571210 Z68.33 Gynecologi c examination 54096618 Z01.411 . Normal exam today. . Mammograms will be scheduled. Plan on bone density study next year. Calcium 1200 mg p.o. daily advised. Atrophic vaginitis 52368 000 N95.2 Patient notes some dyspareuni a over the past year associated with vaginal dryness. Plan is to supplement with estrogen cream. Should this not provide relief I would switch her to O[place]hen[place] Malignant neoplasm of large intestine 293450180 C18.9 Patient continues to follow-up with [facility] colorectal surgery department . He Screening mammography 24 405786 Z12.31 Monthly self breast exam advised mammogram will be scheduled. . Mammogram is scheduled for August 27. Screening for osteoporosis 815126850 Z13.820 Calcium 1200 mg p.o. daily with repeat DEXA in 1 year. Chronic vulvitis 9684866 N76.3 Patient has poorly controlled diabetes with recurrent vulvar yeast infections . She has a standing order for Diflucan from her primary care provider. However I want to make sure she was not missing a resistant yeast or bacterial vaginosis. Sure swab was repeated. Health Concerns Section Related Observation LastModified by Organization Detai ls LastModified Time None Recorded Concern Status LastModified by Organization Details LastModified Time None Recorded Advance Directives Directive None Recorded Payers Insurance Date Sequence Insurance Name Policy Number Policy Betancourt Covered Member ID Betancourt Member ID Guarantor Name 08/06/2024 1 BCBS-[place]: [place] [id number] Iraj Toribiogh [id number] Iraj Lockwood Notes Date Note Type Note Provider Name and Address Organization Details Recorded Time 07/26/2022 text/html Annual GYNReport ed by PatientHistoryFor history, patient reportsno gynecologic complaints.Genitourina ry symptomsFor menstrual cycle, patient reportsnormal menses. For urinary symptoms, patient reportsno hematuriaandno incontinence. For vulva, patient reportsno genital lesion. For vagina, patient reportsnormal vaginal discharge.Breast symptomsFor breast, patient reportsno breast pain,no breast lump, andno nipple discharge.Endocrine symptomsFor sexual complaints, patient reportsno sexual complaints,no pain during intercourse, andnormal libido. For menopausal symptoms, patient reportsno menopausal symptomsandnormal vaginal lubrication.Psychologi pankaj symptomsFor psychological symptoms, patient reportsno depression,no anxiety, andno pmdd. Israel Gray MD [address] [place] [address], [phone], [facility] [employer] 07/26/2022 14:05:26 07/07/2023 text/html Upper Respirator y SymptomsReported by PatientUpper Respiratory SymptomsFor quality, patient reportsdry cough. For context, patient reportssick contactandallergies. For associated symptoms, patient reportssore throatandheadache. For location, patient reportshead,chest,thro at,nasal, andears. For severity, patient reportsmoderate. For duration, patient reportssymptoms lasting less than 2 weeks. For onset/timing, patient reportssudden.Pt reports that daughter had covid over the weekend and now she has symptoms. She reports a dry cough, runny nose with a lot of sneezing, headache. She reports taking Xyzal.ROS as noted in the HPI Consent for treatment obtained. Telehealth visit Tosha Combs APRN [address] [place], [address], [employer] 07/07/2023 08:28:01 08/01/2023 text/html Annual GYNReport ed by PatientHistoryFor history, patient reportsno gynecologic complaints.Genitourina ry symptomsFor menstrual cycle, patient reportsnormal menses. For urinary symptoms, patient reportsno hematuriaandno incontinence. For vulva, patient reportsno genital lesion. For vagina, patient reportsnormal vaginal discharge.Breast symptomsFor breast, patient reportsno breast pain,no breast lump, andno nipple discharge.Endocrine symptomsFor sexual complaints, patient reportsno sexual complaints,no pain during intercourse, andnormal libido. For menopausal symptoms, patient reportsno menopausal symptomsandnormal vaginal lubrication.Psychologi pankaj symptomsFor psychological symptoms, patient reportsno depression,no anxiety, andno pmdd. Israel Gray MD [address] [place], [address], [employer] 08/01/2023 13:25:10 08/02/2024 text/html Annual GYNReport ed by PatientHistoryFor history, patient reportsno gynecologic complaints.Genitourina ry symptomsFor menstrual cycle, patient reportsnormal menses. For urinary symptoms, patient reportsno hematuriaandno incontinence. For vulva, patient reportsno genital lesion. For vagina, patient reportsnormal vaginal discharge.Breast symptomsFor breast, patient reportsno breast pain,no breast lump, andno nipple discharge.Endocrine symptomsFor sexual complaints, patient reportsno sexual complaints,no pain during intercourse, andnormal libido. For menopausal symptoms, patient reportsno menopausal symptomsandnormal vaginal lubrication.Psychologi pankaj symptomsFor psychological symptoms, patient reportsno depression,no anxiety, andno pmdd. 58-year-old white female G0 status post hysterectomy years ago who presents today for annual well woman exam. She is followed by the [facility] colorectal service for previous history of colon cancer and has a colonoscopy scheduled for September 10. She also has a mammogram scheduled for August 27. Chief complaint today is some vaginal atrophy with resultant dyspareunia. Israel Gray MD [address] [place] [address], [phone], [facility] [employer] 08/02/2024 09:26:13 OBGyn Episode No OBEpisode recorded.
--- OUTSIDE RECORDS SUMMARY | 2025-04-07 22:37 | XMS_ITS | Clinical Summary ---
Author Organization Healthcare Address [address] [place] [address] Care Team Providers Care Roller Stitcher Name Role Phone Nell Velazquez Duane KNOX Primary Care Provider Allergies Active Allergy Reactions Criticality Noted Date Comments Penicillin G Other - please docum ent in the comment field,Unknown - Patient states they do not know rxn details Low 08/29/2020 yeast infection Medications losartan (Cozaar) 100 MG tablet 8 Active escitalopram (Lexapro) 20 MG tablet 8 Active fluticasone (Flonase) 50 MCG/ACT nasal spray 7 Active SITagliptin (Januvia) 100 MG tablet 7 Active metFORMIN XR (Glucophage-XR) 500 MG 24 hr tablet 6 Active Glucose Blood (ONETOUCH ULTRA BLUE ) 6 Active Jardiance 25 MG 1 Active traZODone (Desyrel) 50 MG tablet 1 Active OneTouch Ultra test strip 1 Active Victoza 18 MG/3ML inj. pen 1 Active B-D UF III MINI PEN NEEDLES 31G X 5 MM misc 1 Active fluconazole (Diflucan) 200 MG tablet 1 Active erythromycin (Romycin) 5 MG/GM ophthalmic ointment Apply 1 application to both eyes every 6 (six) hours. 3.5 g 2 Active pilocarpine (Pilocar) 1 % ophthalmic solution ADMINISTER 1 DROP INTO THE RIGHT EYE 1 TIME EACH DAY 45 mL 1 2 Active polyethylene glycol (MiraLax) 17 GM/SCOOP powder Take at 6pm - day before procedure. Mix Miralax 238 gram bottle with 64 ounces of Gatorade and refrigerate. Drink 8 ounces every 15 minutes starting at 6pm until completete. 238 g 5 Active bisacodyl (Dulcolax) 5 MG EC tablet Day before procedure at 4pm take 4 tablets with 8 oz of clear liquid. 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 Bilateral dry eyes 09/18/2020 PCO (posterior capsular opacification), right Diabetes mellitus type 2 without retinopathy History of YAG laser capsulotomy of lens of righ t eye 04/29/2017 Traumatic mydriasis 10/20/2016 Superficial laceration of right cornea 7 Hyphema of right eye 09/28/2016 Family History Medical History Relation Name Comments Cardiac disorder Mother Cataracts Mother Diabetes Mother Other cancer Mother Glaucoma Other Relation Name Status Comments Mother Other Social History Tobacco Use Types Packs/Day Years Used Date Smoking Tobacco: Never Smokeless Tobacco: Never Alcohol Use Standard Drinks/Week Comments Yes 0 (1 standard drink = 0.6 oz pure alcohol) Alcoholic Drinks/day: Occasional alcohol use Comments No Sex and Gender Information Value Date Recorded Sex Assigned at Female 04/15/2021 6:17 PM EST Legal Sex Female 7:39 PM EDT Gender Identity Female 04/15/2021 6:17 PM EST Sexual Orientation Not on file Last Filed Vital Signs Vital Sign Reading Time Taken Comments Blood Pressure 115/82 09/10/2024 2:45 PM EDT Pulse 101 09/10/2024 2:45 PM EDT Temperature 36.2 C (97.1 F) 09/10/2024 2:30 PM EDT Respiratory Rate 15 09/10/2024 2:45 PM EDT Oxygen Saturation 95% 09/10/2024 2:45 PM EDT Inhaled Oxygen Concentration - - Weight 90.4 kg (199 lb 4.7 oz) 09/10/2024 12:40 PM EDT Height 170.2 cm (5' 7 ) 09/10/2024 12:40 PM EDT Body Mass Index 31.21 09/10/2024 12:40 PM EDT Plan of Treatment Health Maintenance Due Date Last Done Comments [facility]-Depression Screening 1963 [facility]-Diabetes: Hemoglobin A1C 1963 [facility]-HIV Screening 1963 [facility]-Hepatitis C Screening 1963 [facility]-Infant/Child/Adol SDOH Screenings 1965 [facility]-Obesity Intervention 10/12/1969 Diabetes: Dental Exam 10/12/1973 [facility]- SDOH Screenings 10/12/1981 [facility]-Adult SDOH Screenings 10/12/1981 CT Colonography 10/12/2008 FIT-DNA 10/12/2008 FIT 10/12/2008 FOBT 10/12/2008 Sigmoidoscopy 10/12/2008 [facility]-Breast Cancer Screening 10/12/2013 [facility]-Pneumococcal Vaccine: 50+ Years (2 of 2 - PCV) 01/14/2021 01/15/2020 [id number] Vaccine (2024- season) 2025 11/24/2021, 03/12/2021, 07/05/2020, Additional history exists [facility]-Influenza Vaccine (#1) 01/14/202503/01, 03/03/2023, 03/08/2022, Additional history exists Colonoscopy 09/09/2029 09/10/2024, 09/02/2021 [facility]-Colorectal Cancer Screening 09/09/2029 [facility]-DTaP,Tdap,and Td Vaccines (2 - Td or Tdap) 10/19/2033 10/20/2023 [facility]-RSV Vaccine: 60+ Years or (1 - 1-dose 75+ series) 10/12/2038 [facility]-Zoster Vaccines Completed 03/22/2020, 0 HPV Vaccines Aged Out No longer eligi ble based on patient's age to complete this topic [facility]-HIB Vaccines Aged Out No longer e ligible based on patient's age to complete this topic [facility]-Hepatitis A Vaccines Aged Out No longer eligible based on patient's age to complete this topic [facility]-IPV Vaccines Aged Out No longer e ligible based on patient's age to complete this topic [facility]-Rotavirus Vaccines Aged Out No lo nger eligible based on patient's age to complete this topic Procedures Procedure Name Priority Date/Time Associated Diagnosis Comments COLONOSCOPY Routine 09/10/2024 2:28 PM EDT Screening due from Last 3 Months or Most Recently Relevant to Health Maintenance Results * Colonoscopy (09/10/2024 2:28 PM EDT) Anatomical Region Laterality Modality Endoscopy Narrative 09/10/2024 2:29 PM EDT Table formatting from the original result was not included. Impression: Scattered diverticulosis of mild severity in the sigmoid colon Medium (grade 2) hemorrhoids Healthy dadb-my-knqa ileocolonic anastomosis in the terminal ileum Post Procedure Diagnosis None Recommendations Repeat colonoscopy in 5 years, due: 09/09/2029 Personal history of colon polyps Indication Order Indication: Screening due Medications midazolam (Versed) injection 5 mg fentaNYL (Sublimaze) injection 125 mcg (Totals for administrations occurring from 1339 to 1426 on 09/10/24) Staff Staff Role Jonathan Prater MD Proceduralist Yenni Hendrickson Endo Assembler [employer] Noa Hurd RN Endo Nurse Nacho Law MD Resident - Assisting Maribel Torres RN Endo Nurse Preprocedure A history and physical has been performed, and patient medication allergies have been reviewed. The patient's tolerance of previous anesthesia has been reviewed. The risks and benefits of the procedure and the sedation options and risks were discussed with the patient. All questions were answered and informed consent obtained. Details of the Procedure The patient underwent moderate sedation, which was administered by the endoscopist. The patient's blood pressure, heart rate, level of consciousness, oxygen, respirations and ETCO2 were monitored throughout the procedure. A digital rectal exam was performed. A perianal exam was performed. The scope was introduced through the anus and advanced to the site of the skmp-ll-ouqr ileocolonic anastomosis. Retroflexion was performed in the rectum. The quality of bowel preparation was evaluated using the [place] Bowel Preparation Scale with scores of: right colon = 2, transverse colon = 2, left colon = 2. The total BBPS score was 6. Bowel prep was adequate. The patient experienced no blood loss. The procedure was not difficult. The patient tolerated the procedure well. There were no apparent adverse events. Patient reassessed immediately prior to sedation and felt to be medically appropriate to proceed as planned. Moderate (conscious) sedation was personally administered by the endoscopist. The following parameters were monitored: oxygen saturation, heart rate, blood pressure, and response to care. Total physician intra-service time was indicated on the nursing documentation and was 50 minutes. An independent trained observer (Maribel Cantu RN) was present and continuously monitored the patient. Attestation I personally performed the entire procedure Events Procedure Events Event Event Time ENDO SCOPE IN TIME 09/10/2024 1:57 PM ENDO CECUM REACHED 09/10/2024 2:15 PM ENDO SCOPE OUT TIME 09/10/2024 2:26 PM Specimens No specimens were documented in this log. Findings Few small, scattered diverticula of mild severity with no inflammation containing no content in the sigmoid colon Internal medium (grade 2) hemorrhoids observed during retroflexion; no bleeding was observed Healthy ikme-sg-npul ileocolonic anastomosis in the terminal ileum; no bleeding was observed Jonathan Prater MD GI PROCEDURE ORDERABLES Ceci rice Result from Last 3 Months or Most Recently Relevant to Health Maintenance Insurance ANTHEM Care Teams Roller Stitcher Relationship Specialty Start Date End Date Nell Velazquez APRN [facility] [place] [address] PCP - General Family Medicine 09/02/21
--- OUTSIDE RECORDS SUMMARY | 2025-04-07 22:37 | XMS_ITS | Encounter Summary ---
Author Organization [facility] Address [address] [place] [address] Care Team Providers Care Meter Maker Name Role Phone Nell Velazquez APRN Primary Care Provider [phone] Reason for Visit * Reason Comments Med Change Request Encounter Details Date Type Department Care Team (Late st Contact Info) Description 12/27/2021 [facility] [place] [address] [place] [address], [address] [place] [address] Omid Roy MD [address] [address] Social History Tobacco Use Types Packs/Day [...] on filedocumented in this encounter Care Teams Meter Maker Relationship Specialty Start Date End Date Nell Velazquez APRN [address] [place] [address] PCP - General Family Medicine 09/02/21 documented as of this encounter
== END 2025-04-07 23:59 | disposition home or self-care (01) ==
LOC: RAD 22:36
PROVIDERS: PCP Emergency Medicine; Visit Provider Podiatrist
DX: S90.852A Superficial foreign body, left foot, initial encounter (principal); M79.672 Pain in left foot
CPT/HCPCS: 73630

== ENCOUNTER 2025-04-08 14:22 | Outpatient (CLI) | payer BC, SELFPAY ==
--- OUTSIDE RECORDS SUMMARY | 2025-04-08 14:32 | XMS_ITS | Clinical Summary ---
Author Organization [place] [facility] Address [address] [place] [address] Care Team Providers Care Help Desk Assistant Name Role Phone Tonja Leo Primary Care Provider [phone] Allergies No known active allergies Medications XULTOPHY [...] 09/10/2034 Insurance [address] [id number] [employer] Member Subscriber Plan / Payer (Ef fective 2021-Present) Name:Iraj Lockwood Relation to Subscriber:Self Name:MandieEben hernándezin Payer ID:[id number] (NAIC) Type:Not on file Address: [facility] [address] [place] [id number] Care Teams Help Desk Assistant Relationship Specialty Start Date End Date Tonja Leo PA [address] [address] PCP - General Family Medicine 07/03/16
--- OUTSIDE RECORDS SUMMARY | 2025-04-08 14:32 | XMS_ITS | Encounter Summary ---
Author Organization Healthcare Address [address] [place] [address] Care Team Providers Care Parish Nurse Name Role Phone Tonja Leo Primary Care Provider [phone] Nell Velazquez APRN Primary Care Provider Reason for Visit * Reason Comments Med Refill Encounter Details Date Type Department Care Team (Late st Contact Info) Description 07/13/2021 Refill [facility] [address], [address] [place] [address] Omid Roy MD 110 [facility] [address] [place] [address] Social History Tobacco Use Types [...] on filedocumented in this encounter Care Teams Parish Nurse Relationship Specialty Start Date End Date Tonja Leo PA [address] [place] [address] PCP - General 09/26/20 09/01/21 Nell Velazquez APRN [address] [place] [address] PCP - General Family Medicine 09/02/21 documented as of this encounter
--- OUTSIDE RECORDS SUMMARY | 2025-04-08 14:32 | XMS_ITS | Encounter Summary ---
Author Organization [facility] Address [address] [place] [address] Care Team Providers Care Double Needle Stitcher Name Role Phone Nell Velazquez APRN Primary Care Provider Reason for Visit * Reason Comments Med Change Request Encounter Details Date Type Department Care Team (Late st Contact Info) Description 12/27/2021 [facility] [place] [address] [place] [address], [address] [place] [address] Omid Roy MD [address] [address] Social History Tobacco Use Types [...] on filedocumented in this encounter Care Teams Double Needle Stitcher Relationship Specialty Start Date End Date Nell Velazquez APRN [address] [place] [address] PCP - General Family Medicine 09/02/21 documented as of this encounter
--- OUTSIDE RECORDS SUMMARY | 2025-04-08 14:32 | XMS_ITS | Clinical Summary ---
Author Organization Healthcare Address [address] [place] [address] Care Team Providers Care It Lead Name Role Phone Nell Velazquez Duane KNOX Primary Care Provider [phone] Allergies Active Allergy Reactions Criticality Noted Date [...] (2 of 2 - PCV) 01/14/2021 01/15/2020 [id number] Vaccine (2024- season) 2025 11/24/2021, 03/12/2021, 07/05/2020, [...] sigmoid colon Medium (grade 2) hemorrhoids Healthy ieye-dz-womk ileocolonic anastomosis in the terminal ileum Post Procedure Diagnosis None Recommendations Repeat colonoscopy in 5 years, due: 09/09/2029 Personal history of colon polyps Indication Order Indication: Screening due Medications midazolam (Versed) injection 5 mg fentaNYL (Sublimaze) injection 125 mcg (Totals for administrations occurring from 1339 to 1426 on 09/10/24) Staff Staff Role Jonathan Prater MD Proceduralist Yenni Hendrickson Endo Glass Mold Repairer Noa Hurd RN Endo Nurse Nacho Law [...] and advanced to the site of the cztk-ud-fibq ileocolonic anastomosis. Retroflexion was performed in the rectum. The quality of bowel preparation was evaluated using the [place] Bowel Preparation Scale with scores of: right [...] during retroflexion; no bleeding was observed Healthy hbgq-mn-hrof ileocolonic anastomosis in the terminal ileum; no bleeding was observed Jonathan Prater MD GI PROCEDURE ORDERABLES Ceci rice Result from Last 3 Months or Most Recently Relevant to Health Maintenance Insurance ANTHEM Care Teams It Lead Relationship Specialty Start Date End Date Nell Velazquez APRN [facility] [place] [address] PCP - General Family Medicine 09/02/21
[2025-04-08 14:54] LABS: Hematocrit 42.3 % (37.0-47.0); Hemoglobin 14.1 g/dL (12.2-16.2); Immature Granulocytes % 0.2 %; Mean Corpuscular HGB Conc 33.3 g/dL (31.8-35.4); Mean Corpuscular Hemoglobin 29.5 pg (27.0-31.2); Mean Corpuscular Volume 88.5 fl (81-99); Nucleated Red Blood Cells % 0 %; Platelet Count 136 K/mm3 (142-424); Red Blood Count 4.78 M/mm3 (4.20-5.40); Red Cell Distribution Width-SD 41.6 fL; White Blood Count 6.3 K/mm3 (4.8-10.8)
[2025-04-08 15:01] LABS: Hemoglobin A1C 9.1 % (4.0-6.0)
[2025-04-08 15:17] LABS: Alanine Aminotransferase 29 U/L (12-78); Albumin Level 4.6 g/dl (3.5-5.0); Albumin/Globulin Ratio 1.8 (1.1-1.8); Alkaline Phosphatase 65 U/L (38-126); Anion Gap 14.2 mEq/L (5-15); Aspartate Amino Transferase 32 U/L (14-36); Bilirubin,Total 0.5 mg/dl (0.2-1.3); Blood Urea Nitrogen 22 mg/dl (7-17); Calcium 10.1 mg/dl (8.4-10.2); Carbon Dioxide 22 mmol/L (22.0-30.0); Chloride 98 mmol/L (98-107); Creatinine,Serum 0.80 mg/dl (0.52-1.04); Estimated Glomerular Filt Rate 73 ml/min (>60); GFR (African American) 88 ML/MIN (>60); Globulin 2.5 g/dL (1.3-3.2); Glucose 291 mg/dl (74-100); Potassium 4.2 mmoL/L (3.5-5.1); Sodium 130 mmol/L (136-145); Total Protein,Serum 7.1 g/dl (6.3-8.2)
[2025-04-08 15:22] LABS: C-Reactive Protein 5.3 mg/L (0-4)
== END 2025-04-08 23:59 | disposition home or self-care (01) ==
PROVIDERS: PCP Emergency Medicine; Visit Provider Podiatrist
DX: E11.65 Type 2 diabetes mellitus with hyperglycemia (principal); S90.852S Superficial foreign body, left foot, sequela
CPT/HCPCS: 36415; 80053; 83036; 85025; 85651; 86140

== ENCOUNTER 2025-04-09 12:49 | Outpatient (CLI) | payer BC, SELFPAY ==
--- NOTE | 2025-04-09 13:00 | CT_ITS ---
FINAL REPORT CLINICAL HISTORY: evaluate foreign body and r/o abscess vs infection, plantar side of foot Authenticated and ERN
--- OUTSIDE RECORDS SUMMARY | 2025-04-09 13:01 | XMS_ITS | Encounter Summary ---
Author Organization Healthcare Address [address] [place] [address] Care Team Providers Care Gastroenterologist Name Role Phone Tonja Leo Primary Care Provider [phone] Nell Velazquez APRN Primary Care Provider Reason for Visit * Reason Comments Med Refill Encounter Details Date Type Department Care Team (Late st Contact Info) Description 07/13/2021 Refill [facility] [address], [address] [place] [id number] Omid Roy MD [address] [facility] [address] [place] [address] Social History Tobacco Use Types [...] on filedocumented in this encounter Care Teams Gastroenterologist Relationship Specialty Start Date End Date Tonja Leo PA [address] [place] [address] PCP - General 09/26/20 09/01/21 Nell Velazquez APRN [address] [place] [address] PCP - General Family Medicine 09/02/21 documented as of this encounter
--- OUTSIDE RECORDS SUMMARY | 2025-04-09 13:01 | XMS_ITS | Clinical Summary ---
Author Organization [facility] Address [address] [place] [address] Care Team Providers Care Financial Sales Assistant Name Role Phone Tonja Leo Primary Care Provider [phone] Allergies No known active allergies Medications XULTOPHY [...] 09/10/2034 Insurance [address] [id number] [employer] Member Subscriber Plan / Payer (Ef fective 2021-Present) Name:Iraj Lockwood Relation to Subscriber:Self Name:MandieEben hernándezin Payer ID:[id number] (NAIC) Type:Not on file Address: [facility] [id number] [place] [id number] Care Teams Financial Sales Assistant Relationship Specialty Start Date End Date Tonja Leo PA [address] [facility] [address] PCP - General Family Medicine 07/03/16
--- OUTSIDE RECORDS SUMMARY | 2025-04-09 13:01 | XMS_ITS | Clinical Summary ---
Author Organization Healthcare Address [address] [place] [address] Care Team Providers Care Patient Care Specialist Name Role Phone Nell Velazquez Duane KNOX Primary Care Provider [phone] Allergies Active Allergy Reactions Criticality Noted Date [...] (2 of 2 - PCV) 01/14/2021 01/15/2020 [id number] Vaccine (2024- season) 2025 11/24/2021, 03/12/2021, 07/05/2020, [...] sigmoid colon Medium (grade 2) hemorrhoids Healthy skud-hl-tont ileocolonic anastomosis in the terminal ileum Post Procedure Diagnosis None Recommendations Repeat colonoscopy in 5 years, due: 09/09/2029 Personal history of colon polyps Indication Order Indication: Screening due Medications midazolam (Versed) injection 5 mg fentaNYL (Sublimaze) injection 125 mcg (Totals for administrations occurring from 1339 to 1426 on 09/10/24) Staff Staff Role Jonathan Prater MD Proceduralist Yenni Hendrickson Endo Warp Yarn Sorter Noa Hurd RN Endo Nurse Nacho Law [...] and advanced to the site of the hesx-qw-oted ileocolonic anastomosis. Retroflexion was performed in the rectum. The quality of bowel preparation was evaluated using the [place] Bowel Preparation Scale with scores of: right [...] during retroflexion; no bleeding was observed Healthy ewjm-jw-suww ileocolonic anastomosis in the terminal ileum; no bleeding was observed Jonathan Prater MD GI PROCEDURE ORDERABLES Ceci rice Result from Last 3 Months or Most Recently Relevant to Health Maintenance Insurance ANTHEM Care Teams Patient Care Specialist Relationship Specialty Start Date End Date Nell Velazquez APRN [facility] [place] [address] PCP - General Family Medicine 09/02/21
--- OUTSIDE RECORDS SUMMARY | 2025-04-09 13:01 | XMS_ITS | Data Portability ---
Author Organization [employer] [facility] Address [address] [place] [address] Care Team Providers Care Traffic Technician Name Role Phone DIONICIO AVALOS Primary Care Provider Assessment Encounter Date Assessment Date Assessment LastModified by Organization Details LastModified Time 07/26/2022 07/26/2022 Annual gynecological exam performed. Patient will come back in a year unless there are new symptoms. [email or web address] Not available 07/26/2022 13:24:00 08/01/2023 08/01/2023 Annual gynecological exam performed. Patient will come back in a year unless there are new symptoms. [email or web address] Not available 08/01/2023 13:04:06 08/02/2024 08/02/2024 Annual [...] l fluid 2024 025 EB [facility] ([facility], [address] [place] [address], [place], [address], 21:06:41 unlist ed lab - suresw ab(R) advanc ed vagini tis, tma 2023 024 EBM[facility], [address], [place], [address], 4 11:17:15 rapid SARS CoV 2 Ag, QL, IA, upper respir atory specim en [address], [address] [place] [address], [address], 4 08:27:22 rapid strep group A, throat [address], [address] [place] [address], [place], [address], 4 08:27:23 rapid flu (A+B) [address], [address] [place] [address], [address], 4 08:27:24 Referral None record ed. Procedures None record ed. Surgeries None record ed. Imaging MAMMO, screen ing, digita l, bilate ral - Additi onal views and ultras ounds per radiol ogy. 2023 024 [facility] (Central Scheduling), [address] [place] [address] [place], [address], 4 15:36:04 MAMMO, screen ing, digita l, bilate ral 2022 023 [facility] (Central Scheduling), [address] [place] [address] [place], [address], 3 17:07:35 Medication Orders estrad iol 0.01% (0.1 mg/gra m) vagina l cream 2024 025 [email or web address] [facility][id number], [address] [place] [address], [address], 5 09:25:12 Difluc an [address] mg tablet [address] [facility]armacy #3016, [address] [place], [address], 5 09:30:13 nystat in 100,00 0 unit/g jessi topica l powder [address] [facility]3016, [address] [place], [address], 5 09:25:12 cefdin ir 300 mg capsul e 2023 024 [email or web address] [facility] #3016, [address] [place], [address], 5 08:46:09 Difluc an 200 mg tablet 2023 024 EB [facility] #3016, [address] [place], [address], 4 08:27:23 Patient TargetsNo targets recorded. Patient Instructions Encounter Date Encounter Id Patient Instructions Last Modified By Organization Details Last Modified Time 07/07/2023 [id number] learning about healthy weight Not available 07/07/2023 08:27:19 Take medication as prescribed. Increase fluids and rest. Take Tylenol/Motrin as needed for fever/pain. Gargle with salt water/use throat lozenges for sore throat relief. If symptoms persist or worsen call the clinic. [email or web address] Not available 07/07/2023 08:16:42 Plan of care discussed with patient/guardian who voiced understanding. Not available 07/07/2023 08:16:27 Reason for Referral None Reported. Results Created Date Observation Date Name Description Value Unit Range Abnormal Flag Note LastModifiedBy Organization Detail LastModifiedTime 07/07/1907/07/2023 rapid strep group A, throa t Strep positi ve Not Available [facility] on [address], [place], [address], 07/07/2023 08:04:32 07/07/19 24 07/07/2023 rapid SARS CoV 2 Ag, QL, IA, upper respi rator y speci men SARS CoV Ag negati ve Not Available [facility] on [address], [address], 07/07/2023 07:55:20 07/07/19 24 07/07/2023 rapid flu (A+B) Flu A negati ve Not Available [facility] on [address], [address], 07/07/2023 08:04:36 07/07/19 24 07/07/2023 rapid flu (A+B) Flu B negati ve Not Available [facility] on [address], [address], 07/07/2023 08:04:36 08/01/19 24 08/02/2023 SURES WAB(R ) ADVAN KYLE VAGIN ITIS, TMA sureswab(R) adv bacterial vaginosis (bv), tma NEGATI VE negati ve normal Not Available [facility] [address] [place], [address], 08/02/2023 11:17:15 08/01/19 24 08/02/2023 SURES WAB(R ) ADVAN KYLE VAGIN ITIS, TMA blake species DETECT ED not detect ed abnormal Not Available [facility] [address] [place], [address], 08/02/2023 11:17:15 08/01/19 24 08/02/2023 SURES WAB(R [...] resul t. Not Available [facility] [address] [facility], [place], [address], 08/02/2023 11:17:15 08/01/19 24 08/02/2023 SUREDionisio ACHARYA(R ) ADVAN KYLE VAGIN ITIS, TMA trichomonas vaginalis (TV), tma NOT DETECT ED not detect ed normal Not Available [facility] [address] [facility], [place], [address], 08/02/2023 11:17:15 08/03/19 25 08/04/2024 NUSWA B VAGIN ITIS PLUS (VG+) atopobium vaginae Low - 0 score Not Available [facility] ([facility]) [address] [place], [address], 08/04/2024 21:06:41 08/03/19 25 08/04/2024 NUA B VAGIN ITIS PLUS (VG+) bvab 2 Low - 0 score Not Available [facility] ([facility]) [address] [facility], [place], [address], 08/04/2024 21:06:41 08/03/19 25 08/04/2024 NUSWA B [...] prese nce of BV. Not Available [facility] ([facility]) [address] [place], [address], 08/04/2024 21:06:41 08/03/19 25 08/04/2024 NUA B VAGIN ITIS PLUS (VG+) blake albicans, MALISSA Negati ve negati ve Not Available [facility] ([facility]) [address] [place], [address], 08/04/2024 21:06:41 08/03/19 25 08/04/2024 NUSWA B VAGIN ITIS PLUS (VG+) blake glabrata, MALISSA Positi ve negati ve abnormal Publi shed data demon strat e that up to 65% of Josie da glabr patt ident ified in cases of vagin al josie diasi s have decre ased susce ptibi lity to fluco nazol e. Not Available [facility] ([facility]) [address] [facility], [place], [address], 08/04/2024 21:06:41 08/03/19 25 08/04/2024 NUA B VAGIN ITIS PLUS (VG+) trich vag by MALISSA Negati ve negati ve Not Available [facility] ([facility]) [address] [facility], [place], [address], 08/04/2024 21:06:41 08/03/19 25 08/04/2024 NUA B VAGIN ITIS PLUS (VG+) chlamydia trachomatis, MALISSA Negati ve negati ve Not Available [facility] ([facility]) [address] [facility], [place], [address], 08/04/2024 21:06:41 08/03/19 25 08/04/2024 NUA B VAGIN ITIS PLUS (VG+) neisseria gonorrhoeae, MALISSA Negati ve negati ve Not Available [facility] ([facility]) [address] [place], [address], 08/04/2024 21:06:41 08/24/19 23 08/23/2022 MAMMO , scree harry, digit al, bilat eral No observ ation record ed. [facility] (Registration ) [address] [place], [address], 08/24/2022 09:21:23 09/01/19 24 08/25/2023 MAMMO , scree harry, digit al, bilat eral No observ ation record ed. [facility] [address] [place], [address], 09/12/2023 10:55:19 08/28/19 25 08/27/2024 MAMMO , scree harry, digit al, bilat eral No observ ation record ed. [email or web address] ([facility] ) [address] [place], [address], 08/28/2024 12:49:49 09/12/19 25 09/11/2024 US, breas t, unila teral , limit ed No observ ation record ed. [email or web address] [address] [place], [address], 09/11/2024 13:41:58 09/12/19 25 09/11/2024 MAMMO , scree harry, digit al, bilat eral No observ ation record ed. [facility] Registration [address] [place], [address], 09/11/2024 09:29:10 Result Notes None recorded. Problems Name Problem SNOMED Code Status Onset Date Resolution Date Notes Provider Name and Address Organization Details Recorded Time Subacute and chronic vaginitis 171740853 Active 2020 Problem Code: N76.1; Problem Code Type: ICD-10; Not Available [facility] 2 21:13:24 Gynecologic examination Active 2020 Problem Code: Z01.411; Problem Code Type: ICD-10; Not Available [facility] 2 21:13:25 Screening mammography Active 2020 Problem Code: Z12.31; Problem Code Type: ICD-10; Not Available [facility] 2 21:13:25 Screening for osteoporosi s Active 2020 Problem Code: Z13.820; Problem Code Type: ICD-10; Not Available [facility] 2 21:13:25 Postmenopau buffy bleeding 72590454 Active 2020 Problem Code: N95.0; Problem Code Type: ICD-10; Not Available [facility] 2 21:13:25 Atrophic vaginitis 12360708 Active 2020 Problem Code: N95.2; Problem Code Type: ICD-10; Not Available [facility] 2 21:13:26 Screening for malignant neoplasm of colon Active 2020 Not Available [facility] 21:13:25 Disorder of respiratory system suspected 513827677 Active 2020 Not Available [facility] 21:13:25 Mixed hyperlipide lidia 750208103 Active 2020 Problem Code: E78.2; Problem Code Type: ICD-10; Not Available [facility] 2 21:13:24 Type 2 diabetes mellitus without complicatio n 548833072 Active 2020 Not Available [facility] 21:13:24 Hypertensiv e disorder 02313890 Active 2020 Problem Code: I10; Problem Code Type: ICD-10; Not Available [facility] 21:13:24 Malignant neoplasm of large intestine 914458870 Active 2021 Problem Code: C18.9; Problem Code Type: ICD-10; Not Available [facility] 2 21:13:24 Sampling of vagina for Papanicolao u smear Active 2021 Problem Code: Z01.419; Problem Code Type: ICD-10; Not Available [facility] 21:13:25 Hirsutism 939648426 Active 2021 Problem Code: L68.0; Problem Code Type: ICD-10; Not Available [facility] 21:13:25 Problem Notes None recorded. Procedures Surgical History Date Name Laterality Status Provider Name and Address Organization Details Recorded Time 08/25/19 24 Most Recent Mammogram completed DE[facility] [employer] 08/02/2024 08:46:47 08/15/19 21 hysterectomy completed DEYVI [employer] 07/26/2022 13:38:07 07/08/19 21 Date of Last Pap Smear completed DEYVI [employer] 07/26/2022 13:25:51 Hernia Repair completed ED DAWN [facility] 06/24/2022 11:26:43 excision of ganglion cyst completed [employer] 07/26/2022 13:37:47 procedure on gallbladder completed [employer] 07/26/2022 13:37:56 resection of rectum completed [employer] 07/26/2022 13:38:21 Colonoscopy completed [employer] 08/02/2024 09:01:37 Imaging Results None recorded. Procedure Notes None recorded. Medical Equipment None Reported. Allergies Allergen ID Allergen Name Allergen Category Reaction Reaction Severity Criticality Documentation Date Start Date Code Code System Note Provider Name and Address Organization Details Recorded Time 49623 Product containin g penicilli n (product) medicatio n Not available Not available Not available 01/19/2022 33923 8001 SNOMED Marina britt [facility] 15:31:57 Medications Name Sig Start Date [...] Updated DateTime 4 170.18 cm 32.4 kg/m2 39688.6 2 g 97.8 [degF] 70 /min 97 % 110/70 mm[Hg] Jennifer Oliver [facility] [employer] 4 08:04:29 Date Recorded Body height Body mass index (BMI) Body weight Systolic And Diastolic Provider Name and Address Organization Details Last Updated DateTime 07/26/2022 170.18 cm 34.1 kg/m2 72296.14 g 122/80 mm[Hg] DEYVI NOVAK [employer] 07/26/2022 13:48:58 Date Recorded Body height Body mass index (BMI) Body weight Systolic And Diastolic Provider Name and Address Organization Details Last Updated DateTime 08/01/2023 170.18 cm 33.1 kg/m2 43488.15 g 118/76 mm[Hg] GREGORIA ASHLEY [employer] 08/01/2023 13:01:08 Social History Question Answer Notes LastModified by Organizat ion Details LastModified Time Tobacco Smoking Status Never Smoker Marina britt [employer] 07/28/2022 15:32:40 Do You Wear A Helmet When Biking? No [email or web address] Information not available 07/07/2023 Are You Blind Or Do You Have Difficulty Seeing? Yes Wear Glasses Information not available 06/24/2022 What Is Your Level Of Caffeine Consumption? Moderate Information not available 06/24/2022 In The 14 Days Before Symptom Onset, Have You Had Close Contact With A Laboratory-confi rmed COVID-19 While That Case Was Ill? No [email or web address] Information not available 07/07/2023 In The 14 Days Before Symptom Onset, Have You Had Close Contact With A Person Who Is Under Investigation For COVID-19 While That Person Was Ill? No [email or web address] Information not available 07/07/2023 Have You Been To An Area Known To Be High Risk For COVID-19? No [email or web address] Information not available 07/07/2023 Are You Deaf Or Do You Have Serious Difficulty Hearing? No Information not available 06/24/2022 What Type Of Diet Are You Following? REGULAR Information not available 06/24/2022 Who Is Your Employer? [email or web address] Information not available 07/26/2022 Which Of Your Hands Is Dominant? Left Information not available 06/24/2022 What Was The Date Of Your Most Recent Tobacco Screening? 08/01/2023 [email or web address] Information not available 08/01/2023 What Is Your Relationship Status? Information not available 06/24/2022 Do You Use Your Seat Belt Or Car Seat Routinely? Yes Information not available 06/24/2022 Are You Passively Exposed To Smoke? No Information not available 06/24/2022 Are There Any Smokers In Your House? No Information not available 06/24/2022 Do You Participate In Social Media? Yes Information not available 07/07/2023 Has Tobacco Cessation Counseling Been Provided? No [email or web address] Information not available 07/07/2023 Have You Recently Traveled Abroad? No [email or web address] Information not available 07/07/2023 Do You Have Difficulty Walking Or Climbing Stairs? No Information not available 06/24/2022 Are You Currently In School? No Information not available 06/24/2022 Do You Have Any Dietary Restrictions? No Information not available 06/24/2022 Sex: Female Functional Status Question Answer Note LastModified by Conferensum ion Details LastModified Time How many times per week do you consume alcohol? Less than 1 time per week Information not available 06/24/2022 Do you use any illicit or recreational drugs? No Information not available 07/26/2022 Do you or have you ever used any other forms of tobacco or nicotine? 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 No [employer] Information not available 06/24/2022 Mental Status Question Answer Note LastModified by Organizat ion Details LastModified Time Do you feel stressed (tense, restless, nervous, or anxious, or unable to sleep at night)? [id number] [employer] Information not available 06/24/2022 Do you have difficulty concentrating, remembering or making decisions? No [employer] Information n ot available 06/24/2022 Family History [...] available 2022 15:32:33 Medical History Condition Response Anxiety Disorder Y Allergies/Hayfever Y Diabetes Y Hospitalizations N Emergency room [...] virus, quadrivalent, PF 3 completed Jennifer britt, [employer] 03/03/2023 14:25:53 Influenza, MDCK, quadrivalent, PF 1 completed DEYVI britt, [employer] [facility] 07/26/2022 13:24:05 Influenza, MDCK, quadrivalent, PF 9 completed DEYVI britt, [employer] 07/26/2022 13:24:05 Influenza, MDCK, quadrivalent, PF 2 completed DEYVI JAYLAN NOVAK null, [employer] 07/26/2022 13:24:05 zoster recombinant 0 completed DEYVI JAYLAN NOVAK null, [employer] 07/26/2022 13:24:05 zoster recombinant 0 completed DEYVI JAYLAN NOVAK null, [employer] 07/26/2022 13:24:05 COVID-19, mRNA, LNP-S, PF, 100 mcg/0.5mL dose or 50 mcg/0.25mL dose 1 completed DEYVI JAYLAN NOVAK null, [employer] 07/26/2022 13:24:05 COVID-19, mRNA, LNP-S, PF, 100 mcg/0.5mL dose or 50 mcg/0.25mL dose 1 completed DEYVI JAYLAN NOVAK null, [employer] 07/26/2022 13:24:05 COVID-19, mRNA, LNP-S, PF, 100 mcg/0.5mL dose or 50 mcg/0.25mL dose 2 completed DEYVI JAYLAN NOVAK null, [employer] 07/26/2022 13:24:05 COVID-19, mRNA, LNP-S, PF, 100 mcg/0.5mL dose or 50 mcg/0.25mL dose 1 completed DEYVI JAYLAN NOVAK null, [employer] 07/26/2022 13:24:05 pneumococcal polysaccharide PPV23 0 completed DEYVI JAYLAN NOVAK null, [employer] 07/26/2022 13:24:05 Hep B, adult 3 completed DEYVI JAYLAN NOVAK null, [employer] 07/26/2022 13:24:05 Hep B, adult 2 completed DEYVI JAYLAN NOVAK null, [facility] [employer] 07/26/2022 13:24:05 Hep B, adult 2 completed DEYVI MATHEWCO null, [facility] 07/26/2022 13:24:05 Influenza, split virus, quadrivalent, PF 8 completed DEYVI TIAN NOVAK null, [employer] 07/26/2022 13:24:05 Influenza, split virus, quadrivalent, PF 0 completed DEYVI JAYLAN NOVAK null, [employer] 07/26/2022 13:24:05 Past Encounters Encounter ID Performer Location Encounter Start Date Encounter Closed Date Diagnosis/Indication Diagnosis SNOMED-CT Code Diagnosis ICD10 Code Diagnosis IMO Codes Diagnosis Note [id number] Tonja Leo PA-C [facility] y [address] [place], [place] [address] 06/24/2022 11:09:09 06/24/2022 13:01:47 Acute sinusitis 51571666 J01.90 rest, increase fluids, Tylenol for fever or headache, humidifier . Continue Flonase and start antibiotic . Monitor blood glucose for elevations over 200 with adjustment in diet and contact PCP if persists with elevations . f/u in 5-7 days if not improved. Body mass index 30+ - obesity 407952075 Z68.34 healthy low carbohydra te low fat diet and regular aerobic exercise. Tobacco non-user [id number] 001 52829 Z13.89 [id number] Israel Gray MD [address] [address] 07/26/2022 13:10:26 07/26/2022 14:08:03 Gynecologic examination 46759909 Z01.411 No new gynecologi c issues. Normal exam today. Screening mammography 102852 Z12.31 Monthly self breast exam advised mammogram will be scheduled. . Screening for osteoporosis 348732887 Z13.820 Calcium 1200 mg p.o. daily with repeat DEXA in 1 to 2 years. [id number] Tonja Leo PA-C [facility] y [address] [place], [place] [address] 03/03/2023 12:27:00 03/03/2023 14:25:20 Administration of influenza vaccine 69361485 Z23 [id number] Tosha [place] APRN [facility] y [address] [place] [address] 07/07/2023 07:53:30 07/07/2023 10:31:02 Acute tonsillitis caused by Streptococcus 4538769769 4568383 J03.00 Acute uppe r respiratory infection 26256725 J06.9 Body mass index 30+ - obesity 173954217 Z68.32 [id number] Israel Gray MD [address] [address] 08/01/2023 12:55:17 08/01/2023 13:47:05 Gynecologic examination 13912003 Z01.411 No new gynecologi c issues. Normal exam today. . Mammograms will be scheduled. Plan on bone density study next year. Calcium 1200 mg p.o. daily advised. Screening mammography 24 477353 Z12.31 Monthly self breast exam advised mammogram will be scheduled. . Malignant neoplasm of large intestine 931791437 C18.9 Patient continues to follow-up with [facility] colorectal surgery department . He Chronic vulvitis 5004986 N76.3 Patient has poorly controlled diabetes with recurrent vulvar yeast infections . She has a standing order for Diflucan from her primary care provider. However I want to make sure she was not missing a resistant yeast or bacterial vaginosis. Sure swab was repeated. [id number] Israel Gray MD [address] [address] 08/02/2024 08:44:46 08/02/2024 09:25:39 Body mass index 30+ - obesity 549655747 Z68.33 Gynecologi c examination 39416449 Z01.411 . Normal exam today. . Mammograms will be scheduled. Plan on bone density study next year. Calcium 1200 mg p.o. daily advised. Atrophic vaginitis 51587 000 N95.2 Patient notes some dyspareuni a over the past year associated with vaginal dryness. Plan is to supplement with estrogen cream. Should this not provide relief I would switch her to [place] Malignant neoplasm of large intestine 762270378 C18.9 Patient continues to follow-up with [facility] colorectal surgery department . He Screening mammography 24 006822 Z12.31 Monthly self breast exam advised mammogram will be scheduled. . Mammogram is scheduled for August 27. Screening for osteoporosis 944750360 Z13.820 Calcium 1200 mg p.o. daily with repeat DEXA in 1 year. Chronic vulvitis 4377169 N76.3 Patient has poorly controlled diabetes with [...] Betancourt Member ID Guarantor Name 08/06/2024 1 [place] [id number] Iraj Toribiogh [id number] Iraj Lockwood Notes Date Note Type [...] depression,no anxiety, andno pmdd. Israel Gray MD [address] [place] [address], [phone], [facility] [employer] 07/26/2022 14:05:26 07/07/2023 text/html Upper Respirator [...] obtained. Telehealth visit Tosha [place] APRN [address] [place], [address], [employer] 07/07/2023 08:28:01 08/01/2023 text/html Annual GYNReport ed [...] anxiety, andno pmdd. Israel Gray MD [address] [place], [address], [employer] 08/01/2023 13:25:10 08/02/2024 text/html Annual GYNReport [...] atrophy with resultant dyspareunia. Israel Gray MD [address] [place] [address], [phone], [facility] [employer] 08/02/2024 09:26:13 OBGyn Episode No OBEpisode recorded.
--- OUTSIDE RECORDS SUMMARY | 2025-04-09 13:01 | XMS_ITS | Encounter Summary ---
Author Organization [facility] Address [address] [place] [address] Care Team Providers Care Pharmacy Technician Name Role Phone Nell Velazquez APRN Primary Care Provider Reason for Visit * Reason Comments Med Change Request Encounter Details Date Type Department Care Team (Late st Contact Info) Description 12/27/2021 [facility] [place] [address] [place] [address], [address] [place] [address] Omid Roy MD [address] [address] Social History Tobacco Use Types [...] on filedocumented in this encounter Care Teams Pharmacy Technician Relationship Specialty Start Date End Date Nell Velazquez APRN [address] [place] [address] PCP - General Family Medicine 09/02/21 documented as of this encounter
[2025-04-09] MEDS: IOPAMIDOL-370 (76%);100ML BOTTLE 75 ML IV (13:14)
[2025-04-09] MEDS: SODIUM CHLORIDE 0.9% 10ML SYR (RAD ONLY) 10 ML IV (13:14)
--- NOTE | 2025-04-09 17:20 | XR_ITS ---
PROCEDURE INFORMATION: Exam: XR Left Foot Exam date and time: 04/09/2025 4:17 PM Age: 59 years old Clinical indication: Screening exam; Fb eval; Additional info: Evaluation for left foot foreign body TECHNIQUE: Imaging protocol: Radiologic exam of the left foot. Views: 1 or 2 views. COMPARISON: CT FOOT LT WO/W CON 04/09/2025 1:01 PM FINDINGS: Bones/joints: Normal. Soft tissues: 3 mm radiopaque opacity is seen in the soft tissues along the plantar aspect near the base of the 1st and 2nd digits corresponding to the radiopacity noted on the recent CT scan.. IMPRESSION: 3 mm radiopaque opacity is seen in the soft tissues along the plantar aspect near the base of the 1st and 2nd digits corresponding to the radiopacity noted on the recent CT scan..
== END 2025-04-09 23:59 | disposition home or self-care (01) ==
LOC: RAD 12:49
PROVIDERS: PCP Emergency Medicine; Visit Provider Podiatrist
DX: A49.01 Methicillin susceptible Staphylococcus aureus infection, unspecified site (principal); S90.852S Superficial foreign body, left foot, sequela; M79.672 Pain in left foot
CPT/HCPCS: 73620; 73702; Q9967